=== PATIENT | female | born 1995 ===

== ENCOUNTER 2017-08-01 11:57 | Emergency (ER) | payer OTHER ==
[2017-08-01] MEDS ORDERED: NS(*) 0.9% 1000 ML BAG 1,000 ML IV ONE (12:03)
[2017-08-01] MEDS ORDERED: LORazepam 2 MG/ML VIAL IVP ONE (12:05)
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
[2017-08-01 12:14] LABS: PLATELET COUNT, AUTOMATED 285 K/uL (150-450)
[2017-08-01] MEDS ORDERED: CLON-303 PO (12:16)
[2017-08-01] MEDS ORDERED: BUSP10TA95 PO (12:17)
--- NOTE | 2017-08-01 12:20 | EKG ---
[place] [facility] [place] NAME: LALO NOLASCO : [id number] MR: [id number] V: [id number] EXAM DATE: ORDERING PHYSICIAN: RAMESH WANG TECHNOLOGIST: PATEL Test Reason : SYNCOPE Blood Pressure : / mmHG Vent. Rate : 110 BPM Atrial Rate : 110 BPM P-R Int : 126 ms QRS Dur : 072 ms QT Int : 332 ms P-R-T Axes : 060 079 055 degrees QTc Int : 449 ms Sinus tachycardia Baseline artifact makes difficult to interpret limb leads No obviouis ST-T abnormalities No previous ECGs available Confirmed by JAKY GALLEGOS ([id number]) on 08/01/2017 10:24:20 PM Referred By: MAYDA Confirmed By:JAKY GALLEGOS
--- NOTE | 2017-08-01 13:31 | RADIOLOGY IMAGING REPORT ---
[place] [facility] [place] NAME: Diogo Bartholomew : 1995 MR: [id number] V: [id number] EXAM DATE: ORDERING PHYSICIAN: RAMESH WANG TECHNOLOGIST: Location: [facility] - [place] Patient: Diogo Bartholomew : 1995 Visit/Account:[id number] Date of Sevice: 08/01/2017 Exam type: CHEST PA AND LAT History: Loss of consciousness Comparison: None. Findings: The lungs are free of acute effusions, infiltrates or edema. The cardiac silhouette is normal in siz e. The trachea is midline. There is no evidence of a pneumothorax or pneumomediastinum. IMPRESSION: 1. No acute cardiac pulmonary process is seen Report Dictated By: Gertrude Sun MD at 08/01/2017 1:26 PM Report E-Signed By: Gertrude Sun MD at 08/01/2017 1:27 PM WSN:[id number]
[2017-08-01] MEDS ORDERED: IOPAMIDOL 76% 75 ML INFUS BTL 75 ML ONE (13:58)
[2017-08-01] MEDS ORDERED: PROMETHAZINE 25 MG/ML 1 ML AMP IVP ONE (14:20)
--- NOTE | 2017-08-01 14:38 | RADIOLOGY IMAGING REPORT ---
FACILITY: [facility] - [place] PATIENT NAME: Diogo Bartholomew : 1995 MR: [id number] V: [id number] EXAM DATE: ORDERING PHYSICIAN: RAMESH WANG TECHNOLOGIST: Location: [facility] Patient: Diogo Bartholomew : 1995 Visit/Account:[id number] Date of Sevice: 08/01/2017 EXAMINATION: Head CT without intravenous contrast HISTORY: Seizure, elevated LFTs, vomiting and diarrhea TECHNIQUE: Contiguous axial images were obtained from the skull base to the vertex without intraven ous contrast. Sagittal and coronal reformatted images are also submitted. Dose Lowering Technique One of the following dose optimization techniques was utilized in the performance of this exam: Autom ated exposure control; adjustment of the mA and/or kV according to the patient's size; or use of an i terative reconstruction technique. Specific details can be referenced in the facility's radiology C T exam operational policy. COMPARISON: None. FINDINGS: Brain volume: Normal. Ventricles: Normal. Acute ischemic changes: None. Hemorrhage: None. Masses / edema: None. Cifuentes-white: Negative. White matter: Normal. Vessels: Negative. Extra-axial: Negative. Calvarium / scalp: Negative. Skull base / visualized face: Negative. Visualized sinuses / orbits: Negative. IMPRESSION: Unremarkable head CT without contrast. Given the clinical history MR may be of value Report Dictated By: Gertrude Sun MD at 08/01/2017 2:31 PM Report E-Signed By: Gertrude Sun MD at 08/01/2017 2:34 PM WSN:[email or web address]
--- NOTE | 2017-08-01 14:39 | RADIOLOGY IMAGING REPORT ---
[place] [facility] [place] Diogo Bartholomew : 1995 MR: [id number] V: [id number] EXAM DATE: ORDERING PHYSICIAN: RAMESH WANG TECHNOLOGIST: Location[place] [facility] [place] Patient: Diogo Bartholomew : 1995 Visit/Account:[id number] Date of Sevice: 08/01/2017 ABDOMEN/PELVIS WITH CONTRAST Provided history: Seizure. Elevated LFTs. Vomiting. Diarrhea. Additional pertinent history: none TECHNIQUE: Spiral scan was obtained from the lower chest through the symphysis with intravenous cont rast Contrast dose: 75 mL Isovue 370 intravenously. Source images were reformatted in the coronal and sagittal planes. Additional series performed today: none One of the following dose optimization techniques was utilized in the performance of this exam: Autom ated exposure control; adjustment of the mA and/or kV according to the patient's size; or use of an i terative reconstruction technique. Specific details can be referenced in the facility's radiology CT exam operational policy. COMPARISON STUDIES: none FINDINGS: Lower chest: Negative Liver/biliary: Advanced diffuse hepatic steatosis. Liver density is nearly equal to that of bile in t he gallbladder. No focal lesion. Surface is smooth. No vascular thromboses. Main portal vein measures 17 mm, mildly prominent. Splenic size normal. No varices are visualized at this time. Pancreas: Negative Spleen: Negative Adrenal glands: Negative Kidneys / ureters / bladder / genitourinary / retroperitoneum: Negative Bowel / peritoneum / mesenteries: Negative Vessels: negative Lymph nodes: negative Body wall: negative Bones: Benign condensation medullary bone noted proximal right femoral shaft. IMPRESSION: 1. Advanced diffuse hepatic steatosis without signs of developing cirrhosis at this time. There may b e early evidence of portal venous hypertension with a mildly prominent main portal vein. 2. No acute inflammatory changes in the abdomen or pelvis. Report Dictated By: Nick Sales MD at 08/01/2017 2:27 PM Report E-Signed By: Nick Sales MD at 08/01/2017 2:34 PM WSN:[id number]
[2017-08-01] MEDS: [UNRECOGNIZED DRUG - OTHER] IV SCH (15:00)
[2017-08-01] MEDS: THIAMINE HCL IV SCH (15:00)
[2017-08-01] MEDS: FOLIC ACID IV SCH (15:00)
[2017-08-01 18:24] VITALS: BP 137/94
== END 2017-08-01 18:29 | disposition home or self-care (01) ==
LOC: ER 12:00
DX: F41.9 Anxiety disorder, unspecified (principal); R94.5 Abnormal results of liver function studies; E86.0 Dehydration; F10.10 Alcohol abuse, uncomplicated
CPT/HCPCS: 36415; 70450; 71046; 74177; 80074; 80305; 80320; 80329; 81001; 81025; 82140; 82150; 82550; 82800; 83605; 83690; 83735; 83874; 84443; 84484; 85025; 93005; 96361; 96365; 96366; 96375; 99284; J2060; J2550; J3411; J3475; J7030; Q9967; 82040; 82247; 82310; 82374; 82435; 82565; 82947; 84075; 84132; 84155; 84295; 84450; 84460; 84520

== ENCOUNTER → 2017-08-01 | Outpatient (CLI) | payer OTHER ==
[~2017-08-01] MED LIST: BUSP10TA95 PO; CLON-303 PO
== END ==
LOC: AMB 11:43
PROVIDERS: ATTEND Nurse Practitioner
DX: R55 Syncope and collapse (principal); F41.9 Anxiety disorder, unspecified; R53.1 Weakness; I10 Essential (primary) hypertension; R00.0 Tachycardia, unspecified; R06.82 Tachypnea, not elsewhere classified; R10.10 Upper abdominal pain, unspecified
CPT/HCPCS: A0425; A0427

== ENCOUNTER 2017-10-11 04:35 | Emergency (ER) | payer OTHER ==
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
[2017-10-11] MEDS ORDERED: THIAMINE HCL(*) 200 MG/2 ML IN 100 MG, FOLIC ACID(*) 50 MG/10 ML INJ 1 MG, MULTIVITAMIN... IV ONE (04:50)
[2017-10-11] MEDS ORDERED: ESCI20TA38 PO (05:00)
[2017-10-11] MEDS ORDERED: ONDANSETRON 4 MG/2 ML VIAL IVP ONE (05:20)
[2017-10-11 05:31] LABS: PLATELET COUNT, AUTOMATED 281 K/uL (150-450)
[2017-10-11] MEDS ORDERED: LORazepam 2 MG/ML VIAL IVP ONE (05:55)
[2017-10-11] MEDS ORDERED: NICOTINE CARTRIDGE 1 EA PO PRN (07:05)
[2017-10-11] MEDS ORDERED: NICOTINE INH SYSTEM 10 MG/INH INH PRN (07:05)
[2017-10-11] MEDS ORDERED: LORazepam 1 MG TAB PO ONE (09:20)
[2017-10-11 11:33] VITALS: BP 128/79
[2017-10-11] MEDS ORDERED: cefTRIAXone 250 MG VIAL IM ONE (11:40)
[2017-10-11] MEDS ORDERED: AZITHROMYCIN 250 MG TAB PO ONE (11:40)
[2017-10-11] MEDS ORDERED: IBUPROFEN 600 MG TAB PO ONE (11:40)
[2017-10-11] MEDS ORDERED: LEVONORGESTREL 1.5 MG TAB PO ONE (11:40)
== END 2017-10-11 12:16 | disposition home or self-care (01) ==
LOC: ER 04:58
DX: F10.229 Alcohol dependence with intoxication, unspecified (principal); Y90.8 Blood alcohol level of 240 mg/100 ml or more; F41.9 Anxiety disorder, unspecified; T74.21XA Adult sexual abuse, confirmed, initial encounter
CPT/HCPCS: 80320; 80329; 83735; 84443; 85025; 96365; 96375; 99284; A9270; J0696; J2060; J2405; J3411; J3475; J7030; Q0144; 82040; 82247; 82310; 82374; 82435; 82565; 82947; 84075; 84132; 84155; 84295; 84450; 84460; 84520

== ENCOUNTER 2017-11-14 19:48 | Emergency (ER) | payer OTHER ==
[~2017-11-14 19:48] MED LIST changes: +ESCI20TA38 PO
[2017-11-15] MEDS ORDERED: HYDR25TA66 PO (08:55)
[2017-11-15] MEDS ORDERED: HYDR25CA83 PO (11:04)
== END 2017-11-14 21:39 | disposition left against medical advice (07) ==
LOC: ER 20:20
DX: Z02.9 Encounter for administrative examinations, unspecified (principal)

== ENCOUNTER 2017-11-15 08:48 | Emergency (ER) | payer OTHER ==
[2017-11-15] MEDS ORDERED: HYDR25TA66 PO (08:55)
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
[2017-11-15 09:47] LABS: PLATELET COUNT, AUTOMATED 211 K/uL (150-450)
[2017-11-15 10:45] VITALS: BP 124/96
[2017-11-15] MEDS ORDERED: HYDR25CA83 PO (11:04)
[2017-11-16] MEDS ORDERED: MULT-1379 PO (08:29)
[2017-11-16] MEDS ORDERED: FOLI-68 PO (08:29)
[2017-11-16] MEDS ORDERED: THIA100T62 PO (08:29)
[2017-11-16] MEDS ORDERED: NICO-219 BC (08:30)
== END 2017-11-15 10:46 ==
LOC: ER 08:55
DX: F10.10 Alcohol abuse, uncomplicated (principal); R25.1 Tremor, unspecified
CPT/HCPCS: 36415; 80305; 80320; 80329; 81001; 81025; 82040; 82247; 82310; 82374; 82435; 82565; 82947; 83735; 84075; 84132; 84155; 84295; 84443; 84450; 84460; 84520; 85025; 99282

== ENCOUNTER 2017-11-15 10:38 | Inpatient (IN) | payer OTHER ==
[~2017-11-15] VITALS: Ht 162.6 cm; Wt 59.0 kg
[~2017-11-15 10:38] MED LIST changes: +HYDR25TA66 PO
[2017-11-15] MEDS ORDERED: DIAZEPAM 10 MG TAB PO ONE (10:55)
[2017-11-15] MEDS ORDERED: MAG HYD/AL HYD/SIMETH 30ML UDC PO PRN (10:55)
[2017-11-15] MEDS ORDERED: HYDR25CA83 PO (11:04)
[2017-11-15 11:20] VITALS: BP 128/92
[2017-11-15] MEDS ORDERED: NICOTINE INH SYSTEM 10 MG/INH INH PRN (12:00)
[2017-11-15] MEDS ORDERED: NICOTINE CARTRIDGE 1 EA PO PRN (12:00)
[2017-11-15] MEDS: DIAZEPAM 10 MG TAB PO PRN ×5 (12:04→22:23)
[2017-11-15 12:50] VITALS: BP 106/76
[2017-11-15 17:30] VITALS: BP 104/82
[2017-11-15 18:51] VITALS: BP 122/86
[2017-11-15 20:00] VITALS: BP 128/82
[2017-11-15] MEDS: NICOTINE POLACRILEX 2 MG GUM PO PRN (20:59)
[2017-11-15 21:57] VITALS: BP 123/89
[2017-11-16 06:00] VITALS: BP 112/71
[2017-11-16] MEDS: NICOTINE POLACRILEX 2 MG GUM PO PRN (08:20)
[2017-11-16] MEDS ORDERED: FOLI-68 PO (08:29)
[2017-11-16] MEDS ORDERED: THIA100T62 PO (08:29)
[2017-11-16] MEDS ORDERED: MULT-1379 PO (08:29)
[2017-11-16] MEDS ORDERED: NICO-219 BC (08:30)
[2017-11-16] MEDS ORDERED: FOLIC ACID 1 MG TAB PO SCH (09:00)
[2017-11-16] MEDS ORDERED: ESCITALOPRAM OXALATE 10 MG TAB PO SCH (09:00)
[2017-11-16] MEDS ORDERED: MULTIVITAMINS TAB PO SCH (09:00)
[2017-11-16] MEDS ORDERED: THIAMINE HCL 100 MG TAB PO SCH (09:00)
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
== END 2017-11-16 09:30 | disposition home or self-care (01) | DRG 897 ==
LOC: BHS 10:38
PROVIDERS: ADMIT Psychiatry & Neurology Psychiatry; ATTEND Psychiatry & Neurology Psychiatry
DX: F10.230 Alcohol dependence with withdrawal, uncomplicated (principal); F12.90 Cannabis use, unspecified, uncomplicated; F41.9 Anxiety disorder, unspecified; F60.9 Personality disorder, unspecified; S10.91XA Abrasion of unspecified part of neck, initial encounter; S00.81XA Abrasion of other part of head, initial encounter; X83.8XXA Intentional self-harm by other specified means, initial encounter; Z53.29 Procedure and treatment not carried out because of patient's decision for other reasons
CPT/HCPCS: 87088

== ENCOUNTER 2017-11-29 22:14 | Emergency (ER) | payer OTHER ==
[~2017-11-29 22:14] MED LIST changes: +FOLI-68 PO; +HYDR25CA83 PO; +MULT-1379 PO; +NICO-219 BC; +THIA100T62 PO
[2017-11-29 22:19] VITALS: BP 132/88
--- NOTE | 2017-11-29 22:34 | ER Report ---
History and Physical Time Seen By MD: 22:26 Hx. of Stated Complaint: Wants to detox but states she doesnt want to talk and non-compliant with UA. States she will allow blood draw. Will not change into gown at this time but allowing vitals. HPI/ROS CHIEF COMPLAINT: Requesting alcohol detox HISTORY OF PRESENT ILLNESS: This is a 22-year-old female. She has alcohol use disorder, has been drinking mainly vodka, one to 2 pints a day for the last several days. Last drink was about 2 hours ago. Starting to feel a little shaky. She does have a history of seizures with withdrawal in the past. She has been admitted here in the past, and signed out AMA. I let her know that the treatment here in the hospital would be exactly the same as previously, and that if she was not okay with the treatment before, what would be different this time. She did not not have an answer for that but did say she was willing to be admitted for treatment. Initially not willing to give a urine sample or get into a gown, but did allow the nurse to begin with a blood draw. She is not wanting to talk to me very much, but will answer a few simple questions and give me some nods and shaking of her head to yes or no questions. Allergies: Coded Allergies: No Known Drug Allergies (Unverified , 11/15/17) Home Meds Reported Medications Nicotine Polacrilex (NICORETTE) 2 Mg Gum, 2 MG BC Q1-2H Y for NICOTINE REPLACEMENT, GUM 11/16/17 Hydroxyzine Pamoate (VISTARIL) 25 Mg Capsule, 25-50 MG PO TID Y for ANXIETY, CAPSULE 11/15/17 Discontinued Reported Medications Thiamine Hcl (THIAMINE HCL) 100 Mg Tablet, 100 MG PO DAILY 11/16/17 Multivits,Th W-Fe,Other Min (THERA-M) 1 Each Tablet, 1 EACH PO QDAY 11/16/17 Folic Acid (FOLIC ACID) 1 Mg Tablet, 1 MG PO QDAY, TAB 11/16/17 Escitalopram Oxalate (LEXAPRO) 20 Mg Tablet, 10 MG PO QDAY, TAB 10/11/17 Reviewed Nurses Notes: Yes Hx Smoking: Yes Smoking Status: Current: Every Day Smoker, Heavy Tobacco Smoker Exposure to Second Hand Smoke?: No Hx Substance Use Disorder: Yes (patient was smokes marijuana last used one week ago) Hx Alcohol Use: Yes Constitutional Vital Sign - Last 24 Hours 11/29/17 22:19 Temp 98.8 Pulse 118 Resp 16 B/P (MAP) 132/88 Pulse Ox 92 O2 Delivery Room Air Physical Exam Was not able to do a physical exam prior to the patient deciding to leave [place]. Medical Decision Making Data Points Result Diagram: 11/29/17225311/29/172253 Laboratory Hematology Test 11/29/17 22:54 Red Blood Count 5.51 M/uL (4.17-5.56) Mean Corpuscular Volume 90.2 fL (80.0-96.0) Mean Corpuscular Hemoglobin 30.9 pg (26.0-33.0) Mean Corpuscular Hemoglobin Concent 34.2 g/dL (32.0-36.0) Red Cell Distribution Width 14.3 % (11.5-14.5) Mean Platelet Volume 7.2 fL (7.2-11.1) Neutrophils (%) (Auto) 45.0 % (39.4-72.5) Lymphocytes (%) (Auto) 45.6 % (17.6-49.6) Monocytes (%) (Auto) 6.8 % (4.1-12.4) Eosinophils (%) (Auto) 1.3 % (0.4-6.7) Basophils (%) (Auto) 1.3 % (0.3-1.4) Nucleated RBC Relative Count (auto) 0.0 /100WBC Neutrophils # (Auto) 2.3 K/uL (2.0-7.4) Lymphocytes # (Auto) 2.3 K/uL (1.3-3.6) Monocytes # (Auto) 0.3 K/uL (0.3-1.0) Eosinophils # (Auto) 0.1 K/uL (0.0-0.5) Basophils # (Auto) 0.1 K/uL (0.0-0.1) Nucleated RBC Absolute Count (auto) 0.00 K/uL Sodium Level 141 mmol/L (137-145) Potassium Level 3.9 mmol/L (3.5-5.0) Chloride Level 101 mmol/L (98-107) Carbon Dioxide Level 24 mmol/L (22-31) Blood Urea Nitrogen 13 mg/dl (7-18) Creatinine 0.80 mg/dl (0.52-1.04) Glomerular Filtration Rate Calc > 60.0 Random Glucose 87 mg/dl (75-110) Calcium Level 8.7 mg/dl (8.4-10.2) Magnesium Level 2.0 mg/dl (1.7-2.2) Total Bilirubin 0.3 mg/dl (0.2-1.3) Aspartate Amino Transf (AST/SGOT) 64 U/L (0-35) Alanine Aminotransferase (ALT/SGPT) 94 U/L (0-56) Alkaline Phosphatase 119 U/L (0-126) Total Protein 7.0 g/dl (6.3-8.2) Albumin 4.1 g/dl (3.5-5.0) Salicylates Level < 10 mg/L Salicylate Last Dose Date unk Acetaminophen Level < 10 ug/ml Serum Alcohol 179 mg/dl Chemistry Test 11/29/17 22:54 White Blood Count 5.1 k/uL (4.5-11.0) Red Blood Count 5.51 M/uL (4.17-5.56) Hemoglobin 17.0 g/dL (12.0-16.0) Hematocrit 49.7 % (34.0-47.0) Mean Corpuscular Volume 90.2 fL (80.0-96.0) Mean Corpuscular Hemoglobin 30.9 pg (26.0-33.0) Mean Corpuscular Hemoglobin Concent 34.2 g/dL (32.0-36.0) Red Cell Distribution Width 14.3 % (11.5-14.5) Platelet Count 284 K/uL (150-450) Mean Platelet Volume 7.2 fL (7.2-11.1) Neutrophils (%) (Auto) 45.0 % (39.4-72.5) Lymphocytes (%) (Auto) 45.6 % (17.6-49.6) Monocytes (%) (Auto) 6.8 % (4.1-12.4) Eosinophils (%) (Auto) 1.3 % (0.4-6.7) Basophils (%) (Auto) 1.3 % (0.3-1.4) Nucleated RBC Relative Count (auto) 0.0 /100WBC Neutrophils # (Auto) 2.3 K/uL (2.0-7.4) Lymphocytes # (Auto) 2.3 K/uL (1.3-3.6) Monocytes # (Auto) 0.3 K/uL (0.3-1.0) Eosinophils # (Auto) 0.1 K/uL (0.0-0.5) Basophils # (Auto) 0.1 K/uL (0.0-0.1) Nucleated RBC Absolute Count (auto) 0.00 K/uL Glomerular Filtration Rate Calc > 60.0 Calcium Level 8.7 mg/dl (8.4-10.2) Magnesium Level 2.0 mg/dl (1.7-2.2) Total Bilirubin 0.3 mg/dl (0.2-1.3) Aspartate Amino Transf (AST/SGOT) 64 U/L (0-35) Alanine Aminotransferase (ALT/SGPT) 94 U/L (0-56) Alkaline Phosphatase 119 U/L (0-126) Total Protein 7.0 g/dl (6.3-8.2) Albumin 4.1 g/dl (3.5-5.0) Salicylates Level < 10 mg/L Salicylate Last Dose Date unk Acetaminophen Level < 10 ug/ml Serum Alcohol 179 mg/dl Toxicology Test 11/29/17 22:54 Salicylates Level < 10 mg/L Salicylate Last Dose Date unk Acetaminophen Level < 10 ug/ml Serum Alcohol 179 mg/dl ED Course/Re-evaluation ED Course The patient was not sure if she would stay or not. Kept walking toward the exit and then back to her room. She requested to go outside and have a cigarette, which we said would not be possible. She did have lab work started, but decided to leave and signed out AMA. Decision to Disposition Date: Nov 29, 2017 Decision to Disposition Time: 23:12 Depart Departure Latest Vital Signs Vital Signs Date Time Temp Pulse Resp B/P (MAP) Pulse Ox O2 Delivery O2 Flow Rate FiO2 11/29/17 22:19 98.8 118 16 132/88 92 Room Air Impression: Primary Impression: Alcohol use disorder, severe, dependence Condition: Condition Unchanged Disposition: AGAINST MED ADV / [facility] JULIA OHARA MD Nov 29, 2017 22:33
[2017-11-29] MEDS ORDERED: DIAZEPAM 10 MG TAB PO ONE (22:35)
[2017-11-29 23:02] LABS: PLATELET COUNT, AUTOMATED 284 K/uL (150-450)
== END 2017-11-29 23:14 | disposition left against medical advice (07) ==
LOC: ER 22:32
DX: F10.220 Alcohol dependence with intoxication, uncomplicated (principal); F17.210 Nicotine dependence, cigarettes, uncomplicated; Y90.6 Blood alcohol level of 120-199 mg/100 ml
CPT/HCPCS: 80320; 80329; 82040; 82247; 82310; 82374; 82435; 82565; 82947; 83735; 84075; 84132; 84155; 84295; 84443; 84450; 84460; 84520; 85025; 99283

== ENCOUNTER 2017-12-07 16:49 | Emergency (ER) | payer OTHER ==
[~2017-12-07 16:49] MED LIST changes: -NIC10R INH; -NICOTROL INHALER PO
[2017-12-07] MEDS ORDERED: THIAMINE HCL(*) 200 MG/2 ML IN 100 MG, FOLIC ACID(*) 50 MG/10 ML INJ 1 MG, MULTIVITAMIN... IV ONE (16:52)
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
[2017-12-07 16:56] VITALS: BP 140/95
[2017-12-07 17:09] LABS: PLATELET COUNT, AUTOMATED 256 K/uL (150-450)
[2017-12-07] MEDS ORDERED: NICOTINE 21 MG/24 HR PATCH TD ONE (17:30)
--- NOTE | 2017-12-07 19:19 | BHS - Psychiatric Evaluation ---
ER - Title 25 MHE Evaluation Title 25 Evaluation Patient Detained By: Physician Referral Source: EMS/friend Date Patient Detained: Dec 07, 2017 Time Patient Detained: 19:03 Date Retirement Expires: Dec 11, 2017 Time Retirement Expires: 19:00 Legal Status: Police Hold: No Legal Status: Residence: State Resident Assessment Data Provided By: Patient HPI/ROS: Patient is a 22-year-old female here intoxicated with alcohol with a RAFIQ of 403, and currently given benzodiazepines and taking cannibus at home. Patient has been evaluated here multiple times for similar complaints and has left AMA previously. I evaluated the patient with Addison Dubois NP who thoroughly evaluated the patient during this visit. Due to the concern that the patient would again leave AMA on critically high levels of ETOH in her system and concern that she also has benzodiazepines in her system which may cause respiratory compromise, the patient was detaines, rights were read to the patient. I further discussed the patient with Dr. Arce with behavioral health services who agreed that the patient was not safe to pursue outpatient treatment. I updated the patient regarding the detainment and she voiced understanding. Patient denies SI, HI but was visibly intoxicated and does pose a significant risk for harm if discharged in current state. Admit due to SI or Attempt: No Suicide Plan: No Plan Alcohol or Drugs Involved: Yes Current Intoxication Info: 403 RAFIQ on ETOH Is Patient Info Reliable: Yes Is Collateral Info Reliable: Yes Mental Status Exam General Appearance: Tearful, Other (Agitated and uncooperative) Speech: Slurred Mood: Euthymic Affect: Tearful, Agitated Thought Process: Goal Directed Cognition: Alert & Oriented-Person, Alert & Oriented-Place, Alert & Oriented- Time, Zwmbf-Sqhhoecn-Kvonutysd Insight Judgment: Poor Current Risk & History Current Dangerous Risk Assessm: Agitation this Encounter, Ubable to Care for Self Past Dangerous Risk Assessm: Other (No documented SI/HI- concurrent severe ETOH use/polysubstance use) Prior Alcohol/Drug Abuse Current and ongoing alcohol abuse Previous Suicide Attempt: No Previous Attempt Previous Psychiatric Illness: Yes Previous Psychiatric Treatment: Yes Risk Assessment & Disposition Evaluated Risk Assessment: Patient poses a high risk of harm to self due to current level of intoxication and concurrent other substance use which may cause respiratory depression and self harm or Impression: Primary Impression: Alcohol use disorder, severe, dependence Additional Impressions: Alcohol abuse Anxiety Meets Mental Illness Req.: Yes Meets Dangerousness Req.: Yes Emergency Retirement to be: Upheld Date of Decision: Dec 07, 2017 Time of Decision: 19:16 Patient is Medically Stable at: Yes Disposition: [facility] Problem Qualifiers WANDA JUNIOR DO Dec 07, 2017 19:19
[2017-12-08] MEDS ORDERED: ESCI20TA38 PO (07:52)
== END 2017-12-07 19:30 ==
LOC: ER 16:56
DX: F10.120 Alcohol abuse with intoxication, uncomplicated (principal); Y90.8 Blood alcohol level of 240 mg/100 ml or more; F12.10 Cannabis abuse, uncomplicated; F17.210 Nicotine dependence, cigarettes, uncomplicated; R00.0 Tachycardia, unspecified
CPT/HCPCS: 80305; 80320; 80329; 81001; 83735; 84443; 84703; 85025; 93005; 96365; 96366; 99284; J3411; J3475; J7030; 82040; 82247; 82310; 82374; 82435; 82565; 82947; 84075; 84132; 84155; 84295; 84450; 84460; 84520

== ENCOUNTER 2017-12-07 19:15 | Inpatient (IN) | payer OTHER ==
[~2017-12-07] VITALS: Ht 190.5 cm; Wt 57.2 kg
[2017-12-07 19:40] VITALS: BP 135/93
[2017-12-07] MEDS ORDERED: MAG HYD/AL HYD/SIMETH 30ML UDC PO PRN (19:45)
[2017-12-07] MEDS: NICOTINE POLACRILEX 2 MG GUM PO PRN (20:22)
--- NOTE | 2017-12-07 20:45 | EKG ---
FACILITY: [facility] - [place], [place] PATIENT NAME: LALO NOLASCO : [id number] MR: [id number]: [id number] EXAM DATE: ORDERING PHYSICIAN: JANICE JAMISON TECHNOLOGIST: FAY Test Reason : ETOH Blood Pressure : / mmHG Vent. Rate : 102 BPM Atrial Rate : 102 BPM P-R Int : 136 ms QRS Dur : 078 ms QT Int : 364 ms P-R-T Axes : 077 075 054 degrees QTc Int : 474 ms Sinus tachycardia Otherwise normal ECG When compared with ECG of 01-AUG-2017 12:09, No significant change was found Confirmed by ROBBY BERNARDO ([id number]) on 12/08/2017 6:48:24 AM Referred By: Confirmed By:ROBBY BERNARDO
--- NOTE | 2017-12-07 21:51 | BHS - Psychiatric Evaluation ---
ER - Title 25 MHE Evaluation Title 25 Evaluation Patient Detained By: Physician (Dr. Winn) Referral Source: Professional: Dr Winn Date Patient Detained: Dec 07, 2017 Time Patient Detained: 18:48 Date Correction Expires: Dec 12, 2017 Time Correction Expires: 18:48 Legal Status: Police Hold: No Legal Status: Residence: [facility] Assessment Data Provided By: Patient, Other Source (S and [facility] Profession[facility]) HPI/ROS: Patient is a 22-year-old female here intoxicated with alcohol with a RAFIQ of 403, and currently given benzodiazepines and taking cannabis at home. Patient has been evaluated here multiple times for similar complaints and has left AMA previously. I evaluated the patient with Addison Dubois NP who thoroughly evaluated the patient during this visit. Due to the concern that the patient would again leave AMA on critically high levels of ETOH in her system and concern that she also has benzodiazepines in her system which may cause respiratory compromise, the patient was detained, rights were read to the patient. I further discussed the patient with Dr. Arce with behavioral health services who agreed that the patient was not safe to pursue outpatient treatment. I updated the patient regarding the detainment and she voiced understanding. Patient denies SI, HI but was visibly intoxicated and does pose a significant risk for harm if discharged in current state. Admit due to SI or Attempt: No Suicide Plan: No Plan (Denies) Alcohol or Drugs Involved: Yes Current Intoxication Info: 403 RAFIQ on ETOH Is Patient Info Reliable: No Is Collateral Info Reliable: Yes Current Home Psych Meds: None noted. Patient given medications to help her safely detox. Mental Status Exam General Appearance: Cooperative Speech: Normal Rate Mood: Dysthmic/Depressed Affect: Sad Thought Content: Suicidal Ideation (Denies) Cognition: Alert & Oriented-Person, Alert & Oriented-Place, No Alert & Oriented -Time, Ufymb-Hixnbswq-Msfuuezny Memory: Immediate Insight Judgment: Poor Sleep: Insomnia Hallucinations: Denies Delusions: Denies Current Risk & History Current Dangerous Risk Assessm: Current Suicide Ideation (Denies) Past Dangerous Risk Assessm: Suicide Ideation-last 6mo Prior Alcohol/Drug Abuse Extremely dangerous alcohol use. She could easily have respiratory failure resulting in if her withdrawal is not medically managed. Previous Suicide Attempt: No Previous Attempt Previous Psychiatric Illness: Yes Previous Diagnosis/Treatment: Alcohol Use Disorder, Severe Previous Psychiatric Treatment: Yes (Patient has been treated previously and left AMA) Risk Assessment & Disposition Evaluated Risk Assessment: Risk is evaluated as high, patient has a critically high RAFIQ, which could result in dangerous alcohol poisoning. Patient said, "I need to be here. I know I need the help." Historically, patient will not stay at the hospital and leaves AMA. The danger in patient withdrawing with out medical supervision is severe. She could easily lose her life. Impression: Primary Impression: Alcohol abuse Additional Impressions: Alcohol blood level excessive Alcohol use disorder, severe, dependence Meets Mental Illness Req.: Yes Meets Dangerousness Req.: Yes Emergency Correction to be: Upheld Decision Comment: Due to the concern that the patient would again leave AMA on critically high levels of ETOH in her system and concern that she also has benzodiazepines in her system which may cause respiratory compromise, the patient was detained. This detainment is necessary to keep patient safe as she could easily lose her life. Patient is in critical physical distress. She is medically unstable. Date of Decision: Dec 07, 2017 Time of Decision: 21:50 Patient is Medically Stable at: Yes Disposition: [facility] Problem Qualifiers ASHTYN LU LPC Dec 07, 2017 21:51
[2017-12-08 03:20] VITALS: BP 143/84
[2017-12-08] MEDS: DIAZEPAM 10 MG TAB PO PRN ×17 (03:40→23:30)
[2017-12-08 06:00] VITALS: BP 132/86
[2017-12-08] MEDS: FOLIC ACID 1 MG TAB PO SCH (07:47)
[2017-12-08] MEDS: MULTIVITAMINS PO SCH (07:47)
[2017-12-08] MEDS: THIAMINE HCL 100 MG TAB PO SCH (07:47)
[2017-12-08] MEDS ORDERED: ESCI20TA38 PO (07:52)
[2017-12-08 11:00] VITALS: BP 116/92
[2017-12-08] MEDS: NICOTINE POLACRILEX 2 MG GUM PO PRN ×3 (13:16→21:00)
[2017-12-08 14:20] VITALS: BP 128/100
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
[2017-12-08 17:50] VITALS: BP 118/100
[2017-12-08] MEDS: ESCITALOPRAM OXALATE 10 MG TAB PO SCH (21:31)
[2017-12-09 05:50] VITALS: BP 127/81
[2017-12-09] MEDS: THIAMINE HCL 100 MG TAB PO SCH (08:03)
[2017-12-09] MEDS: MULTIVITAMINS PO SCH (08:03)
[2017-12-09] MEDS: FOLIC ACID 1 MG TAB PO SCH (08:03)
[2017-12-09 10:10] VITALS: BP 106/57
[2017-12-09] MEDS: DIAZEPAM 10 MG TAB PO PRN ×8 (10:11→22:31)
--- NOTE | 2017-12-09 10:28 | BHS Progress Note ---
BHS - Subjective Progress Notes Subjective "I'm feeling better. I'm a little anxious." Will follow up w/[facility] upon discharge Withdrawal continues, [facility] protocol in place Discuss outpatient follow up for substance abuse Suicidal Ideation: None Homicidal Ideation: None BHS - Objective Physical Exam Vital Signs Current Medications Medications (Trade) Dose Ordered Sig/Dyana Route PRN Reason Start Time Stop Time Status Last Admin Dose Admin Al Hydrox/Mg Hydrox/Simethicone (Maalox(*) 30 ml Udcup (Or Equiv)) 30 ml Q4H PRN PO DYSPEPSIA 12/07/17 19:45 01/06/18 19:44 Multivitamins (Thera-M Enhanced Tab (Or Equiv)) 1 each QDAY PO 12/08/17 09:00 01/07/18 08:59 12/09/17 08:03 Thiamine HCl (Vitamin B-1(*) 100 Mg Tab (Or Equiv)) 100 mg QDAY PO 12/08/17 09:00 01/07/18 08:59 12/09/17 08:03 Folic Acid (Folic Acid (*) 1 Mg Tab) 1 mg QDAY PO 12/08/17 09:00 01/07/18 08:59 12/09/17 08:03 Diazepam (Valium(*) 10 Mg Tab (Or Equiv)) 20 mg Q1H PRN PO FOLLOW [facility] PROTOCOL 12/07/17 19:45 12/09/17 08:13 DC 12/08/17 23:30 Nicotine Polacrilex (Nicorette 2 Mg Gum (Or Equiv)) 2 mg Q1-2H PRN PO NICOTINE REPLACEMENT 12/07/17 19:40 01/06/18 19:39 12/08/17 21:00 Escitalopram Oxalate (Lexapro 10 Mg Tab (Or Equiv)) 10 mg QHS PO 12/08/17 21:00 01/07/18 20:59 12/08/17 21:31 Diazepam (Valium(*) 10 Mg Tab (Or Equiv)) See Comments for C... PRN PRN PO FOLLOW [facility] PROTOCOL 12/09/17 08:15 12/23/17 08:14 12/09/17 10:11 Vital Signs Date Time Temp Pulse Resp B/P (MAP) Pulse Ox O2 Delivery O2 Flow Rate FiO2 6/30/18 05:50 100.0 104 127/81 (96) 12/08/17 17:50 18 97 Room Air Allergies Coded Allergies No Known Drug Allergies (Unverified12/07/17) Muscle Strength and Tone: WNL Gait and Station: Steady [facility] Medications Reviewed: Benefits of Medication, Risks Allergies Reviewed: Yes Mental Status Exam General Appearance: Casual, Well Groomed, Good Eye Contact, Cooperative, Polite Speech: Clear, Spontaneous, Normal Rate, Normal Rhythm, Normal Volume, Normal Tone Mood: Dysthmic/Depressed Affect: Calm, Sad, Tearful, Anxious Thought Process: Organized, Logical, Goal Directed, No Loose Associations, No Flight of Ideas Sensorium: Clear Cognition: Alert & Oriented-Person, Alert & Oriented-Place, No Alert & Oriented -Time, Nicos-Eclkqcet-Wbvorfwtu Memory: Immediate, Recent, Remote Intelligence: Average Insight Judgment: No Poor (states intent on outpatient IOP), Fair Lab Allergies Coded Allergies No Known Drug Allergies (Unverified12/07/17) Microbiology Vital Signs Date Time Temp Pulse Resp B/P (MAP) Pulse Ox O2 Delivery O2 Flow Rate FiO2 12/09/17 05:50 100.0 104 127/81 (96) 12/08/17 17:50 18 97 Room Air [facility] Assessment and Plan Hgiy-tc-Rfrv Encounter Date: Dec 09, 2017 Madg-ux-Enpc Encounter Time: 10:23 Multpiple Antipsychotics Used: No Problems: (1) Alcohol use disorder, severe, dependence Status: Chronic (2) Anxiety Status: Acute (3) Alcohol withdrawal Status: Acute Condition Continue [facility] protocol Continue current medications and treatment CALVIN CARRANZA NP Dec 09, 2017 10:28
[2017-12-09] MEDS: NICOTINE POLACRILEX 2 MG GUM PO PRN ×2 (11:57→14:03)
[2017-12-09 12:15] VITALS: BP 114/98
[2017-12-09 14:10] VITALS: BP 111/96
[2017-12-09] MEDS ORDERED: NICOTINE CARTRIDGE 1 EA PO PRN (14:45)
[2017-12-09] MEDS: NICOTINE INH SYSTEM 10 MG/INH INH PRN ×2 (14:59→19:48)
[2017-12-09 20:14] VITALS: BP 132/94
[2017-12-09] MEDS: ESCITALOPRAM OXALATE 10 MG TAB PO SCH (20:21)
[2017-12-10 07:50] VITALS: BP 108/62
[2017-12-10] MEDS: THIAMINE HCL 100 MG TAB PO SCH (07:50)
[2017-12-10] MEDS: FOLIC ACID 1 MG TAB PO SCH (07:50)
[2017-12-10] MEDS: MULTIVITAMINS PO SCH (07:50)
[2017-12-10 07:52] LABS: PLATELET COUNT, AUTOMATED 133 K/uL (150-450)
--- NOTE | 2017-12-10 09:17 | BHS Progress Note ---
S - Subjective Progress Notes Subjective "I'm going to start IOP on December 18. I've done the ASI. I need to get back to work and stay busy." Reports anxiety, denies depression. Verbalizes intent on staying sober. AST 84, ALT 99 Suicidal Ideation: None Homicidal Ideation: None S - Objective Physical Exam Vital Signs Vital Signs Date Time Temp Pulse Resp B/P (MAP) Pulse Ox O2 Delivery O2 Flow Rate FiO2 12/10/17 07:50 98.3 79 108/62 (77) 96 Room Air 12/09/17 14:10 18 Deferred Allergies Coded Allergies No Known Drug Allergies (Unverified12/07/17) Muscle Strength and Tone: WNL Gait and Station: Steady [facility] Medications Reviewed: Benefits of Medication, Risks Allergies Reviewed: Yes Mental Status Exam General Appearance: Casual, Well Groomed, Good Eye Contact, Cooperative, Polite Speech: Clear, Spontaneous, Normal Rate, Normal Rhythm, Normal Volume, Normal Tone Mood: No Dysthmic/Depressed, Euthymic Affect: Full and Appropriate, Calm, No Sad, No Tearful, No Anxious Thought Process: Organized, Logical, Goal Directed, No Loose Associations, No Flight of Ideas Thought Content: No Suicidal Ideation, No Homicidal Ideation, No Delusions, No Auditory Halllucinations, No Visual Hallucinations, No Thought Broadcasting Sensorium: Clear Cognition: Alert & Oriented-Person, Alert & Oriented-Place, No Alert & Oriented -Time, Wwaof-Jzttudhh-Hfpjkthrn Memory: Immediate, Recent, Remote Intelligence: Average Insight Judgment: No Poor (states intent on outpatient IOP), Fair Result Diagram: 12/10/17 0735 12/10/17 0735 Lab Laboratory Tests Test 12/07/17 16:45 12/07/17 17:56 12/10/17 07:35 Range/Units White Blood Count 7.4 5.9 4.5-11.0 k/uL Red Blood Count 5.97 4.59 4.17-5.56 M/uL Hemoglobin 18.6 14.2 12.0-16.0 g/dL Hematocrit 53.4 42.0 34.0-47.0 % Mean Corpuscular Volume 89.4 91.5 80.0-96.0 fL Mean Corpuscular Hemoglobin 31.2 30.9 26.0-33.0 pg Mean Corpuscular Hemoglobin Concent 34.9 33.8 32.0-36.0 g/dL Red Cell Distribution Width 14.2 13.7 11.5-14.5 % Platelet Count 256 133 150-450 K/uL Mean Platelet Volume 7.6 8.1 7.2-11.1 fL Neutrophils (%) (Auto) 62.6 44.5 39.4-72.5 % Lymphocytes (%) (Auto) 29.6 35.8 17.6-49.6 % Monocytes (%) (Auto) 6.3 11.5 4.1-12.4 % Eosinophils (%) (Auto) 0.2 7.1 0.4-6.7 % Basophils (%) (Auto) 1.3 1.1 0.3-1.4 % Nucleated RBC Relative Count (auto) 0.1 0.1 /100WBC Neutrophils # (Auto) 4.6 2.6 2.0-7.4 K/uL Lymphocytes # (Auto) 2.2 2.1 1.3-3.6 K/uL Monocytes # (Auto) 0.5 0.7 0.3-1.0 K/uL Eosinophils # (Auto) 0.0 0.4 0.0-0.5 K/uL Basophils # (Auto) 0.1 0.1 0.0-0.1 K/uL Nucleated RBC Absolute Count (auto) 0.01 0.01 K/uL Sodium Level 140 136 137-145 mmol/L Potassium Level 4.4 3.9 3.5-5.0 mmol/L Chloride Level 99 104 98-107 mmol/L Carbon Dioxide Level 15 25 22-31 mmol/L Blood Urea Nitrogen 12 15 7-18 mg/dl Creatinine 0.80 0.60 0.52-1.04 mg/dl Glomerular Filtration Rate Calc > 60.0 > 60.0 Random Glucose 82 80 75-110 mg/dl Calcium Level 8.8 8.6 8.4-10.2 mg/dl Magnesium Level 2.1 1.7-2.2 mg/dl Total Bilirubin 1.1 0.3 0.2-1.3 mg/dl Aspartate Amino Transf (AST/SGOT) 88 84 0-35 U/L Alanine Aminotransferase (ALT/SGPT) 84 99 0-56 U/L Alkaline Phosphatase 90 96 0-126 U/L Total Protein 7.5 5.0 6.3-8.2 g/dl Albumin 4.6 2.7 3.5-5.0 g/dl Thyroid Stimulating Hormone (TSH) 0.27 0.46-4.68 uIU/ml Human Chorionic Gonadotropin, Qual Negative NEGATIVE Salicylates Level < 10 mg/L Salicylate Last Dose Date unk Acetaminophen Level < 10 ug/ml Serum Alcohol 403 mg/dl Urine Color Yellow Urine Clarity Slightly-cloudy Urine pH 5.0 4.8-9.5 pH Urine Specific [place] 1.024 Urine Protein 100 NEGATIVE mg/dL Urine Glucose (UA) 150 NEGATIVE mg/dL Urine Ketones 80 NEGATIVE mg/dL Urine Blood Small NEGATIVE Urine Nitrite Negative NEGATIVE Urine Bilirubin Negative NEGATIVE Urine Urobilinogen Negative 0.2-1.9 mg/dL Urine Leukocyte Esterase Negative NEGATIVE Urine RBC 1 0-2/HPF /HPF Urine WBC 4 0-5/HPF /HPF Urine Squamous Epithelial Cells Many </=FEW /LPF Urine Bacteria Few NONE-FEW /HPF Urine Hyaline Casts Few NONE-FEW /LPF Urine Mucus Few NONE-FEW /HPF Urine Opiates Screen Negative Urine Barbiturates Screen Negative Ur Tricyclic Antidepressants Screen Negative Urine Phencyclidine Screen Negative Urine Amphetamines Screen Negative Urine Benzodiazepines Screen Negative Urine Cocaine Screen Negative Urine Cannabinoids Screen Positive Microbiology Laboratory Tests 12/10/17 07:35 Laboratory - CBC/BMP Diagrams 12/10/17 07:35 BHS Assessment and Plan Snei-kg-Bxcf Encounter Date: Dec 10, 2017 Cmef-ag-Ttne Encounter Time: 09:12 Multpiple Antipsychotics Used: No Problems: (1) Alcohol use disorder, severe, dependence Status: Chronic (2) Anxiety Status: Acute (3) Alcohol withdrawal Status: Acute Condition Continue CIWA Discuss in length discharge substance abuse therapy follow up once To complete WRAP today CALVIN CARRANZA NP Dec 10, 2017 09:17
[2017-12-10] MEDS: NICOTINE INH SYSTEM 10 MG/INH INH PRN ×3 (09:27→20:27)
[2017-12-10 11:54] VITALS: BP 98/70
[2017-12-10 16:10] VITALS: BP 100/64
[2017-12-10 20:24] VITALS: BP 121/85
[2017-12-10] MEDS: ESCITALOPRAM OXALATE 10 MG TAB PO SCH (20:56)
[2017-12-11 05:30] VITALS: BP 102/62
[2017-12-11] MEDS: THIAMINE HCL 100 MG TAB PO SCH (08:10)
[2017-12-11] MEDS: FOLIC ACID 1 MG TAB PO SCH (08:10)
[2017-12-11] MEDS: MULTIVITAMINS PO SCH (08:11)
[2017-12-11] MEDS: NICOTINE INH SYSTEM 10 MG/INH INH PRN ×3 (08:12→20:35)
[2017-12-11 09:30] VITALS: BP 117/74
--- NOTE | 2017-12-11 14:10 | BHS Progress Note ---
BHS - Subjective Progress Notes Subjective "Is that some kind of a joke"? Patient commenting on this providers approach, and indicating as on previous admission and ER visits, a dissatisfaction with her care. Patient noted to be flirtatious on unit with other male patients. Patient than becoming angry with this provider when this provider exited room, so that patient could hopefully work with therapist and rest of treatment team. Patient notably tearful when she could no longer berate this provider. Underlying maladaptive personality traits outside of alcohol use disorder likely prominent, especially concerning relationships with males. Patient's alcohol withdrawal considered complete, and patient will discharge tomorrow. Suicidal Ideation: None Homicidal Ideation: None BHS - Objective Physical Exam Vital Signs Hematology Test 12/10/17 07:35 Red Blood Count 4.59 M/uL (4.17-5.56) Mean Corpuscular Volume 91.5 fL (80.0-96.0) Mean Corpuscular Hemoglobin 30.9 pg (26.0-33.0) Mean Corpuscular Hemoglobin Concent 33.8 g/dL (32.0-36.0) Red Cell Distribution Width 13.7 % (11.5-14.5) Mean Platelet Volume 8.1 fL (7.2-11.1) Neutrophils (%) (Auto) 44.5 % (39.4-72.5) Lymphocytes (%) (Auto) 35.8 % (17.6-49.6) Monocytes (%) (Auto) 11.5 % (4.1-12.4) Eosinophils (%) (Auto) 7.1 % (0.4-6.7) Basophils (%) (Auto) 1.1 % (0.3-1.4) Nucleated RBC Relative Count (auto) 0.1 /100WBC Neutrophils # (Auto) 2.6 K/uL (2.0-7.4) Lymphocytes # (Auto) 2.1 K/uL (1.3-3.6) Monocytes # (Auto) 0.7 K/uL (0.3-1.0) Eosinophils # (Auto) 0.4 K/uL (0.0-0.5) Basophils # (Auto) 0.1 K/uL (0.0-0.1) Nucleated RBC Absolute Count (auto) 0.01 K/uL Sodium Level 136 mmol/L (137-145) Potassium Level 3.9 mmol/L (3.5-5.0) Chloride Level 104 mmol/L (98-107) Carbon Dioxide Level 25 mmol/L (22-31) Blood Urea Nitrogen 15 mg/dl (7-18) Creatinine 0.60 mg/dl (0.52-1.04) Glomerular Filtration Rate Calc > 60.0 Random Glucose 80 mg/dl (75-110) Calcium Level 8.6 mg/dl (8.4-10.2) Total Bilirubin 0.3 mg/dl (0.2-1.3) Aspartate Amino Transf (AST/SGOT) 84 U/L (0-35) Alanine Aminotransferase (ALT/SGPT) 99 U/L (0-56) Alkaline Phosphatase 96 U/L (0-126) Total Protein 5.0 g/dl (6.3-8.2) Albumin 2.7 g/dl (3.5-5.0) Chemistry Test 12/10/17 07:35 White Blood Count 5.9 k/uL (4.5-11.0) Red Blood Count 4.59 M/uL (4.17-5.56) Hemoglobin 14.2 g/dL (12.0-16.0) Hematocrit 42.0 % (34.0-47.0) Mean Corpuscular Volume 91.5 fL (80.0-96.0) Mean Corpuscular Hemoglobin 30.9 pg (26.0-33.0) Mean Corpuscular Hemoglobin Concent 33.8 g/dL (32.0-36.0) Red Cell Distribution Width 13.7 % (11.5-14.5) Platelet Count 133 K/uL (150-450) Mean Platelet Volume 8.1 fL (7.2-11.1) Neutrophils (%) (Auto) 44.5 % (39.4-72.5) Lymphocytes (%) (Auto) 35.8 % (17.6-49.6) Monocytes (%) (Auto) 11.5 % (4.1-12.4) Eosinophils (%) (Auto) 7.1 % (0.4-6.7) Basophils (%) (Auto) 1.1 % (0.3-1.4) Nucleated RBC Relative Count (auto) 0.1 /100WBC Neutrophils # (Auto) 2.6 K/uL (2.0-7.4) Lymphocytes # (Auto) 2.1 K/uL (1.3-3.6) Monocytes # (Auto) 0.7 K/uL (0.3-1.0) Eosinophils # (Auto) 0.4 K/uL (0.0-0.5) Basophils # (Auto) 0.1 K/uL (0.0-0.1) Nucleated RBC Absolute Count (auto) 0.01 K/uL Glomerular Filtration Rate Calc > 60.0 Calcium Level 8.6 mg/dl (8.4-10.2) Total Bilirubin 0.3 mg/dl (0.2-1.3) Aspartate Amino Transf (AST/SGOT) 84 U/L (0-35) Alanine Aminotransferase (ALT/SGPT) 99 U/L (0-56) Alkaline Phosphatase 96 U/L (0-126) Total Protein 5.0 g/dl (6.3-8.2) Albumin 2.7 g/dl (3.5-5.0) Vital Signs Date Time Temp Pulse Resp B/P (MAP) Pulse Ox O2 Delivery O2 Flow Rate FiO2 12/11/17 09:30 98.1 96 117/74 (88) 96 Room Air 12/11/17 05:30 15 Muscle Strength and Tone: WNL Gait and Station: Steady BHS Medications Reviewed: Benefits of Medication, Risks Allergies Reviewed: Yes Mental Status Exam General Appearance: Casual, Well Groomed, Good Eye Contact, Cooperative, Polite , Tearful (frustrated), Psychomotor Agitation (at times) Speech: Clear, Spontaneous, Normal Rate, Normal Rhythm, Normal Volume, Normal Tone, No Slurred, No Rambling, No Inappropriate Mood: Dysthmic/Depressed (variable.) Affect: Full and Appropriate, Calm, No Sad, Tearful, Anxious Thought Process: Organized, Logical, Goal Directed, No Loose Associations, No Flight of Ideas Thought Content: No Suicidal Ideation, No Homicidal Ideation, No Delusions, No Auditory Halllucinations, No Visual Hallucinations, No Thought Broadcasting, No Ideas of Reference, No Obsessions, No Compulsions Sensorium: Clear Cognition: Alert & Oriented-Person, Alert & Oriented-Place, Alert & Oriented- Time, Dyuxd-Vikzvpzo-Clnfrlwxz Memory: Immediate, Recent, Remote Intelligence: Average Insight Judgment: Fair (improving, but underlying maladaptive personailty traits present. ) Result Diagram: 12/10/17 0735 12/10/17 0735 [facility] Assessment and Plan Yryz-dk-Xflu Encounter Date: Dec 11, 2017 Xetg-tg-Alef Encounter Time: 11:30 [facility] Plan: Necessary Precautions, Individual/Group Therapy, Admin/Titrate Meds, Educate Patient Tobacco Medications: Started Multpiple Antipsychotics Used: No Problems: (1) Alcohol use disorder, severe, in controlled environment Status: Chronic (2) Cannabis use disorder, severe, in controlled environment Status: Chronic (3) Personality disorder, unspecified Status: Chronic Condition 1. Emergency detainment to tomorrow. 2. discharge at that time. 3. continue unit education on substance use, and underlying personality traits. JANICE JAMISON MD Dec 11, 2017 14:10
[2017-12-11] MEDS: ESCITALOPRAM OXALATE 10 MG TAB PO SCH (20:33)
[2017-12-11 22:51] VITALS: BP 104/67
[2017-12-12] MEDS: NICOTINE INH SYSTEM 10 MG/INH INH PRN ×3 (00:30→12:56)
[2017-12-12 05:40] VITALS: BP 117/76
[2017-12-12] MEDS: THIAMINE HCL 100 MG TAB PO SCH (08:23)
[2017-12-12] MEDS: MULTIVITAMINS PO SCH (08:23)
[2017-12-12] MEDS: FOLIC ACID 1 MG TAB PO SCH (08:23)
[2017-12-12] MEDS ORDERED: MULT-1379 PO (09:22)
[2017-12-12] MEDS ORDERED: NIC10R INH (09:23)
[2017-12-12] MEDS ORDERED: NICOTROL INHALER PO (09:24)
--- NOTE | 2017-12-13 21:07 | DISCHARGE SUMMARY ---
DATE OF ADMISSION: December 07, 2017 DATE OF DISCHARGE: December 12, 2017 Patient was seen and assessment made on the a.m. of 12 December 2017 at approximately 1000 hours. Patient refusing to be seen by this provider, but overall observations and notes from this provider and other staff members indicated patient doing well. FINAL DIAGNOSES PER DIAGNOSTIC AND STATISTICAL MANUAL OF MENTAL DISORDERS, FIFTH EDITION 1. Alcohol use disorder, severe. 2. Cannabis use disorder, moderate. 3. Rule out personality disorder, unspecified, likely significant underlying cluster B traits. 4. Maladaptive personality traits remain underlying and present in the absence of alcohol use. 5. Patient having supportive relationship with mother. REASON FOR ADMISSION This is a 22-year-old female who is becoming very well known to the [facility] with visits to the Emergency Room displaying very chaotic and manipulative behavior. Patient presented to the Emergency Room on December 07, 2017 , with critically high alcohol levels. Patient was continuing to exhibit help seeking and help rejecting behaviors as on previous visits to this hospital. Patient was emergency detained based on critically high blood alcohol levels as well as nonacceptance of recommended care on previous visits to the hospital. Please see emergency room notes. Patient was then admitted without incident. Patient's alcohol withdrawal was treated to completion with diazepam via [facility] protocol. Alcohol withdrawal was considered very significant in nature. Patient remained on an emergency detainment, and in the absence of alcohol withdrawal as it was nearing completion, patient continued to demonstrate manipulative behaviors on the unit, being flirtatious with male patients on the unit, and being antagonistic toward providers such as this narrator and other medical providers. Patient continued to put much energy into pointing out perceived flaws in her care as on previous visits to the hospital. Patient not demonstrating any parasuicidal or aggressive behaviors, and again, alcohol withdrawal was treated to completion, and patient discharged to home. PHYSICAL EXAMINATION Please see emergency room note. Notable for: GENERAL: A 22-year-old female once again exhibiting very chaotic behaviors with a critically high blood alcohol level. The patient notably tolerant of high blood alcohol levels. VITAL SIGNS: Temperature at time of admission 97.8, pulse 115, respiratory rate 18, blood pressure 140/95, pulse oximetry 90 on room air. Vital signs at time of discharge showed temperature 98.8, pulse 93, respiratory rate 15, blood pressure 117/76, and pulse oximetry 97 on room air. LABORATORY DATA On December 10, 2017, CBC was notable only for platelet count remaining low at 133. Chemistry panel notable for AST elevated at 84, ALT elevated at 99. At time of admission, toxicology screen positive for cannabinoids and serum alcohol level elevated critically high at 403. Urinalysis showed urine glucose present at 150 with urine ketones present at 80 as well. screen was negative. TSH 0.27, likely interference from alcohol intoxication. MENTAL STATUS EXAMINATION GENERAL APPEARANCE, BEHAVIOR, AND ATTITUDE: At time of discharge, this is a mildly cooperative, antagonistic, 22-year-old female, overall well groomed. No psychomotor agitation or retardation. No bizarre mannerisms or tics. Patient making good eye contact, not tearful. SPEECH: With other staff members, and upon observation was within normal limits. Regular rate, rhythm, volume, and tone. MOOD: Remaining frustrated. AFFECT: Mildly constricted at times. THOUGHT PROCESSES: Goal directed, patient adamantly wanting to leave the hospital as emergency detainment was expiring. No loose associations or flight of ideas. THOUGHT CONTENT: Free of auditory or visual hallucinations, ideas of reference , thought broadcasting, delusions, obsessions, compulsions. Patient adamantly denying suicidal or homicidal ideations. SENSORIUM: Clear. COGNITION: Alert and oriented to person, place, time, and situation. MEMORY: Immediate, recent, and remote estimated intact. INTELLIGENCE: Previously estimated as average and based on this admission is average based on interview. INSIGHT AND JUDGMENT: Maladaptive personality traits remain even in the absence of alcohol use disorder, and patient may not be fully understanding the severity of alcohol use disorder combined with cannabis use. Patient not allowing this provider to interview her directly, and information for mental status exam obtained through visualization and monitoring of conversations through staff members and this patient. RESULTS OF TESTING IMAGING: None. LABORATORY DATA: See above. PSYCHOLOGICAL TESTING: Not done. CONSULTATIONS None. TREATMENT Patient received medications, participated to some degree in individual and group therapy. HOSPITAL COURSE Patient's alcohol withdrawal was treated to completion with diazepam per [facility] protocol, was found to be a significant withdrawal in nature. Patient remained manipulative, engaging in manipulative behavior with other staff, noted to be giving other patients false information while on the floor as well. Patient very antagonistic of this provider and other providers she has seen at [facility], and patient putting much energy into pointing out perceptions of flaws in the care she received here at [facility]. Patient likely exhibiting multiple cluster B personality traits that have been longstanding in nature. CONDITION OF PATIENT ON DISCHARGE Stable, considered minimal risk to herself or others and appropriate for discharge in the absence of alcohol, cannabis, or other substance use. DISPOSITION Patient discharged to home. She agreed to abstain from alcohol and cannabis and all illicit substances. Patient would follow up at [facility] with intensive outpatient therapy. Patient recommended to attend DBT groups as well for likely underlying cluster B personality traits. Patient was given the crisis line should symptoms return. She agreed to avoid Tylenol and acetaminophen-containing products. Patient encouraged to stop smoking and remain on [id number] nicotine replacement if necessary. DISCHARGE MEDICATIONS 1. Lexapro 10 mg at bedtime. Patient has script at home. 2. Multivitamin with minerals daily. 3. Patient could use hydroxyzine 25 to 50 mg p.r.n. for anxiety and insomnia as well, and patient had at home. Risks, benefits, and alternatives of above discharge plan were discussed. Informed consent was given to proceed with above discharge plan by this patient and patient's mother aware of discharge plan at time of discharge. It is notable that this patient's prognosis remains rather poor in the face of significant alcohol and cannabis use disorder combined with maladaptive personality traits. Hopefully, patient will continue to seek therapy, in order to mature and abstain from substances on an outpatient basis. YASIR
== END 2017-12-12 14:33 | disposition home or self-care (01) | DRG 897 ==
LOC: BHS 19:15
PROVIDERS: ADMIT Psychiatry & Neurology Psychiatry; ATTEND Psychiatry & Neurology Psychiatry
DX: F10.230 Alcohol dependence with withdrawal, uncomplicated (principal); F12.10 Cannabis abuse, uncomplicated; F60.9 Personality disorder, unspecified; F41.9 Anxiety disorder, unspecified; Y90.8 Blood alcohol level of 240 mg/100 ml or more; Z91.19 Patient's noncompliance with other medical treatment and regimen; Z81.1 Family history of alcohol abuse and dependence; Z81.8 Family history of other mental and behavioral disorders
CPT/HCPCS: 36415; 82040; 82247; 82310; 82374; 82435; 82565; 82947; 84075; 84132; 84155; 84295; 84450; 84460; 84520; 85025

== ENCOUNTER → 2017-12-07 | Outpatient (CLI) | payer OTHER ==
[~2017-12-07] MED LIST changes: +NIC10R INH; +NICOTROL INHALER PO
== END ==
LOC: AMB 16:30
PROVIDERS: ATTEND Nurse Practitioner
DX: R56.9 Unspecified convulsions (principal)
CPT/HCPCS: A0425; A0427

== ENCOUNTER 2018-01-01 22:35 | Inpatient (IN) | payer OTHER ==
[~2018-01-01] VITALS: Ht 162.6 cm; Wt 61.7 kg
[~2018-01-01 22:35] MED LIST changes: -CLON-303 PO; +CLON-304 PO; +NIC10R INH; +NICOTROL INHALER PO
--- NOTE | 2018-01-01 22:38 | ER Report ---
History and Physical Time Seen By MD: 22:37 HPI/ROS CHIEF COMPLAINT: Suicidal ideations, alcohol intoxication HISTORY OF PRESENT ILLNESS: Patient is a 22-year-old female here with complaints of depression, anxiety, verbalization of suicidal ideations via text to family members. Patient is visibly intoxicated, uncooperative and unwilling to answer questions. Reportedly family members became concerned when she was texting them, verbalizing that she was going to harm herself. Family members notified the local please brought the patient in for emergency detainment. Patient has prior history of alcohol abuse, depression. She was recently admitted in December 07 for similar complaints and reportedly had a difficult detox per prior reports. Article 25 was petitioned by police upon arrival for emergency longterm. REVIEW OF SYSTEMS: Unable to obtain due to lack of cooperation Allergies: Coded Allergies: No Known Drug Allergies (Unverified , 12/07/17) Home Meds Reported Medications [Nicotrol Inhaler] No Conflict Check, 1 EA PO PRN Y for NICOTINE REPLACEMENT 12/12/17 Nicotine (NICOTROL) 10 Mg/Inh Ctr, 10 MG INH PRN Y for NICOTINE REPLACEMENT 12/12/17 Multivits,Th W-Fe,Other Min (THERA-M) 1 Each Tablet, 1 EACH PO QAM 12/12/17 Escitalopram Oxalate (LEXAPRO) 20 Mg Tablet, 10 MG PO QHS, TAB 12/08/17 Hydroxyzine Pamoate (VISTARIL) 25 Mg Capsule, 25-50 MG PO TID Y for ANXIETY, CAPSULE 11/15/17 Hx Smoking: Yes Smoking Status: Current: Every Day Smoker, Heavy Tobacco Smoker Exposure to Second Hand Smoke?: No Hx Substance Use Disorder: Yes (patient smokes marijuana OFTEN) Hx Alcohol Use: No Constitutional Vital Sign - Last 24 Hours 01/01/18 01/01/18 01/02/18 01/02/18 22:36 23:50 00:05 00:14 Temp 98.6 Pulse 99 ??? 89 94 Resp 16 B/P (MAP) 147/98 117/81 (93) Pulse Ox 95 90 01/02/18 01/02/18 01/02/18 01/02/18 00:19 00:34 00:49 01:04 Pulse 97 99 103 106 Pulse Ox 90 89 89 89 01/02/18 01/02/18 01/02/18 01/02/18 02:09 02:24 02:39 02:54 Pulse 110 103 103 107 Pulse Ox 89 90 89 89 01/02/18 01/02/18 03:25 03:40 Pulse 100 103 Pulse Ox 90 90 Physical Exam General Appearance: The patient is alert, has no immediate need for airway protection and no signs of toxicity. + Tearful, distressed Eyes: Pupils equal and round no pallor or injection. ENT, Mouth: Mucous membranes are moist. Respiratory: There are no retractions, lungs are clear to auscultation. Cardiovascular: Regular rate and rhythm. Gastrointestinal: Abdomen is soft and non tender, no masses, bowel sounds normal. Neurological: No focal neuro deficits Skin: Warm and dry, no rashes. Psych: + anxious, tearful, suicidal DIFFERENTIAL DIAGNOSIS: After history and physical exam differential diagnosis was considered for depression, anxiety, suicidal thoughts and gestures Medical Decision Making Data Points Result Diagram: 01/01/18 0728 01/01/18 8531 Laboratory Hematology Test 01/01/18 23:53 01/02/18 00:02 Red Blood Count 5.33 M/uL (4.17-5.56) Mean Corpuscular Volume 90.4 fL (80.0-96.0) Mean Corpuscular Hemoglobin 30.8 pg (26.0-33.0) Mean Corpuscular Hemoglobin Concent 34.0 g/dL (32.0-36.0) Red Cell Distribution Width 13.7 % (11.5-14.5) Mean Platelet Volume 8.2 fL (7.2-11.1) Neutrophils (%) (Auto) 55.9 % (39.4-72.5) Lymphocytes (%) (Auto) 35.5 % (17.6-49.6) Monocytes (%) (Auto) 5.7 % (4.1-12.4) Eosinophils (%) (Auto) 2.4 % (0.4-6.7) Basophils (%) (Auto) 0.5 % (0.3-1.4) Nucleated RBC Relative Count (auto) 0.0 /100WBC Neutrophils # (Auto) 3.1 K/uL (2.0-7.4) Lymphocytes # (Auto) 1.9 K/uL (1.3-3.6) Monocytes # (Auto) 0.3 K/uL (0.3-1.0) Eosinophils # (Auto) 0.1 K/uL (0.0-0.5) Basophils # (Auto) 0.0 K/uL (0.0-0.1) Nucleated RBC Absolute Count (auto) 0.00 K/uL Sodium Level 143 mmol/L (137-145) Potassium Level 3.9 mmol/L (3.5-5.0) Chloride Level 104 mmol/L (98-107) Carbon Dioxide Level 18 mmol/L (22-31) Blood Urea Nitrogen 9 mg/dl (7-18) Creatinine 0.70 mg/dl (0.52-1.04) Glomerular Filtration Rate Calc > 60.0 Random Glucose 79 mg/dl (75-110) Calcium Level 8.9 mg/dl (8.4-10.2) Magnesium Level 2.3 mg/dl (1.7-2.2) Total Bilirubin 0.5 mg/dl (0.2-1.3) Aspartate Amino Transf (AST/SGOT) 81 U/L (0-35) Alanine Aminotransferase (ALT/SGPT) 90 U/L (0-56) Alkaline Phosphatase 110 U/L (0-126) Total Protein 7.4 g/dl (6.3-8.2) Albumin 4.7 g/dl (3.5-5.0) Salicylates Level < 10 mg/L Salicylate Last Dose Date unknown Acetaminophen Level < 10 ug/ml Serum Alcohol 371 mg/dl Urine Color Yellow Urine Clarity Clear Urine pH 5.0 pH (4.8-9.5) Urine Specific [place] 1.005 Urine Protein Negative mg/dL (NEGATIVE) Urine Glucose (UA) Negative mg/dL (NEGATIVE) Urine Ketones Trace mg/dL (NEGATIVE) Urine Blood Negative (NEGATIVE) Urine Nitrite Negative (NEGATIVE) Urine Bilirubin Negative (NEGATIVE) Urine Urobilinogen Negative mg/dL (0.2-1.9) Urine Leukocyte Esterase Negative (NEGATIVE) Urine RBC None /HPF (0-2/HPF) Urine WBC <1 /HPF (0-5/HPF) Urine Squamous Epithelial Cells Moderate /LPF (NONE-FEW) Urine Transitional Epithelial Cells Few /LPF (NONE-FEW) Urine Bacteria Negative /HPF (NONE-FEW) Urine Hyaline Casts Few /LPF (NONE-FEW) Urine Mucus None /HPF (NONE-FEW) Urine HCG, Qualitative Negative (NEGATIVE) Urine Opiates Screen Negative Urine Barbiturates Screen Negative Ur Tricyclic Antidepressants Screen Negative Urine Phencyclidine Screen Negative Urine Amphetamines Screen Negative Urine Benzodiazepines Screen Positive Urine Cocaine Screen Negative Urine Cannabinoids Screen Negative Chemistry Test 01/01/18 23:53 01/02/18 00:02 White Blood Count 5.5 k/uL (4.5-11.0) Red Blood Count 5.33 M/uL (4.17-5.56) Hemoglobin 16.4 g/dL (12.0-16.0) Hematocrit 48.2 % (34.0-47.0) Mean Corpuscular Volume 90.4 fL (80.0-96.0) Mean Corpuscular Hemoglobin 30.8 pg (26.0-33.0) Mean Corpuscular Hemoglobin Concent 34.0 g/dL (32.0-36.0) Red Cell Distribution Width 13.7 % (11.5-14.5) Platelet Count 165 K/uL (150-450) Mean Platelet Volume 8.2 fL (7.2-11.1) Neutrophils (%) (Auto) 55.9 % (39.4-72.5) Lymphocytes (%) (Auto) 35.5 % (17.6-49.6) Monocytes (%) (Auto) 5.7 % (4.1-12.4) Eosinophils (%) (Auto) 2.4 % (0.4-6.7) Basophils (%) (Auto) 0.5 % (0.3-1.4) Nucleated RBC Relative Count (auto) 0.0 /100WBC Neutrophils # (Auto) 3.1 K/uL (2.0-7.4) Lymphocytes # (Auto) 1.9 K/uL (1.3-3.6) Monocytes # (Auto) 0.3 K/uL (0.3-1.0) Eosinophils # (Auto) 0.1 K/uL (0.0-0.5) Basophils # (Auto) 0.0 K/uL (0.0-0.1) Nucleated RBC Absolute Count (auto) 0.00 K/uL Glomerular Filtration Rate Calc > 60.0 Calcium Level 8.9 mg/dl (8.4-10.2) Magnesium Level 2.3 mg/dl (1.7-2.2) Total Bilirubin 0.5 mg/dl (0.2-1.3) Aspartate Amino Transf (AST/SGOT) 81 U/L (0-35) Alanine Aminotransferase (ALT/SGPT) 90 U/L (0-56) Alkaline Phosphatase 110 U/L (0-126) Total Protein 7.4 g/dl (6.3-8.2) Albumin 4.7 g/dl (3.5-5.0) Salicylates Level < 10 mg/L Salicylate Last Dose Date unknown Acetaminophen Level < 10 ug/ml Serum Alcohol 371 mg/dl Urine Color Yellow Urine Clarity Clear Urine pH 5.0 pH (4.8-9.5) Urine Specific [place] 1.005 Urine Protein Negative mg/dL (NEGATIVE) Urine Glucose (UA) Negative mg/dL (NEGATIVE) Urine Ketones Trace mg/dL (NEGATIVE) Urine Blood Negative (NEGATIVE) Urine Nitrite Negative (NEGATIVE) Urine Bilirubin Negative (NEGATIVE) Urine Urobilinogen Negative mg/dL (0.2-1.9) Urine Leukocyte Esterase Negative (NEGATIVE) Urine RBC None /HPF (0-2/HPF) Urine WBC <1 /HPF (0-5/HPF) Urine Squamous Epithelial Cells Moderate /LPF (NONE-FEW) Urine Transitional Epithelial Cells Few /LPF (NONE-FEW) Urine Bacteria Negative /HPF (NONE-FEW) Urine Hyaline Casts Few /LPF (NONE-FEW) Urine Mucus None /HPF (NONE-FEW) Urine HCG, Qualitative Negative (NEGATIVE) Urine Opiates Screen Negative Urine Barbiturates Screen Negative Ur Tricyclic Antidepressants Screen Negative Urine Phencyclidine Screen Negative Urine Amphetamines Screen Negative Urine Benzodiazepines Screen Positive Urine Cocaine Screen Negative Urine Cannabinoids Screen Negative Toxicology Test 01/01/18 23:53 01/02/18 00:02 Salicylates Level < 10 mg/L Salicylate Last Dose Date unknown Acetaminophen Level < 10 ug/ml Serum Alcohol 371 mg/dl Urine Opiates Screen Negative Urine Barbiturates Screen Negative Ur Tricyclic Antidepressants Screen Negative Urine Phencyclidine Screen Negative Urine Amphetamines Screen Negative Urine Benzodiazepines Screen Positive Urine Cocaine Screen Negative Urine Cannabinoids Screen Negative Urinalysis Test 01/02/18 00:02 Urine Color Yellow Urine Clarity Clear Urine pH 5.0 pH (4.8-9.5) Urine Specific [place] 1.005 Urine Protein Negative mg/dL (NEGATIVE) Urine Glucose (UA) Negative mg/dL (NEGATIVE) Urine Ketones Trace mg/dL (NEGATIVE) Urine Blood Negative (NEGATIVE) Urine Nitrite Negative (NEGATIVE) Urine Bilirubin Negative (NEGATIVE) Urine Urobilinogen Negative mg/dL (0.2-1.9) Urine Leukocyte Esterase Negative (NEGATIVE) Urine RBC None /HPF (0-2/HPF) Urine WBC <1 /HPF (0-5/HPF) Urine Squamous Epithelial Cells Moderate /LPF (NONE-FEW) Urine Transitional Epithelial Cells Few /LPF (NONE-FEW) Urine Bacteria Negative /HPF (NONE-FEW) Urine Hyaline Casts Few /LPF (NONE-FEW) Urine Mucus None /HPF (NONE-FEW) Urine HCG, Qualitative Negative (NEGATIVE) ED Course/Re-evaluation ED Course Patient is a 22-year-old female here with complaints of suicidal ideation and gestures with a history of anxiety and depression. Patient was recently admitted for similar complaints to the behavioral health floor. Patient reportedly verbalized her intent for self-harm to her family members who contacted the local police for intervention. Patient initially was very uncooperative refusing to answer questions or be examined initially. Due to her verbally aggressive nature and need for evaluation for medical clearance, patient was given Zyprexa 10 mg, Ativan 2 mg and Benadryl 50 mg IM. Labs were remarkable for an alcohol level of 371, positive urine for benzodiazepines after Ativan was given to the patient. Due to the patient's threats for self- harm and concurrent alcohol intoxication, decision to admit the patient for further psychiatric care was made. I discussed the patient with Dr. Orozco who confirmed that there were no available beds on the behavioral health services floor. I discussed the patient with Dr. Abby Caldwell who accepted the patient to the medical ICU floor. Nursing supervisor stave cutting was contacted to arrange for personal coverage. Patient was stable at time of admission. Decision to Disposition Date: Jan 02, 2018 Decision to Disposition Time: 00:49 Depart Departure Latest Vital Signs Vital Signs Date Time Temp Pulse Resp B/P (MAP) Pulse Ox O2 Delivery O2 Flow Rate FiO2 01/02/18 03:40 103 90 01/01/18 23:50 117/81 (93) 01/01/18 22:36 98.6 16 Impression: Primary Impression: Depression Additional Impressions: GENERALIZED ANXIETY DISORDER SUICIDAL IDEATIONS ALCOHOL DEPENDENCE, UNCOMPLICATED Condition: Improved Disposition: Admitted from ER Problem Qualifiers WANDA JUNIOR DO Jan 01, 2018 22:37
[2018-01-01] MEDS ORDERED: diphenhydrAMINE 50 MG/ML VIAL IM ONE (22:45)
[2018-01-01] MEDS ORDERED: LORazepam 2 MG/ML VIAL IM ONE (22:45)
[2018-01-01] MEDS ORDERED: OLANZapine 10 MG VIAL IM ONE (22:45)
[2018-01-01] MEDS ORDERED: WATER STERILE 10 ML VIAL IM ONLY ONE (22:45)
[2018-01-02 00:04] LABS: PLATELET COUNT, AUTOMATED 165 K/uL (150-450)
--- NOTE | 2018-01-02 06:22 | BHS - Psychiatric Evaluation ---
ER - Title 25 MHE Evaluation Title 25 Evaluation Patient Detained By: Law Enforcement Referral Source: Police, Patient family Date Patient Detained: Jan 01, 2018 Time Patient Detained: 22:25 Date [facility]cf Expires: Jan 03, 2018 Time [facility] Expires: 22:25 Legal Status: Police Hold: No Legal Status: Residence: [facility] Resident, State Resident Assessment Data Provided By: Patient, Law Enforcement, Family Member(s) HPI/ROS: Patient is a 22-year-old female here with complaints of suicidal ideation, alcohol intoxication. Patient reportedly was verbalizing suicidal thoughts and plans to family members when they contacted local police enforcement further intervention. Patient is visibly intoxicated at time of evaluation, angry about being detained. Admit due to SI or Attempt: Yes Suicide Plan: No Plan Alcohol or Drugs Involved: Yes Current Intoxication Info: Alcohol Emergency Medical/Psych Tx: Zyprexa 10 mg, Ativan 2 mg, Benadryl 50 mg Is Patient Info Reliable: No Is Collateral Info Reliable: Yes Mental Status Exam General Appearance: Unkept, Tearful Speech: Rambling Mood: No Dysthmic/Depressed, No Euthymic, No Hyperthymic, No Other Affect: Sad, Tearful, Anxious, Agitated Thought Process: No Organized, No Logical, No Goal Directed, No Loose Associations, No Flight of Ideas, No Other Thought Content: Suicidal Ideation Sensorium: Other (intoxicated) Cognition: Alert & Oriented-Person, Alert & Oriented-Place, Alert & Oriented- Time, [id number] Memory: Immediate Insight Judgment: Poor Sleep: No Normal, No Insomnia, No Hypersomnia Hallucinations: Denies Delusions: Denies Current Risk & History Current Dangerous Risk Assessm: Current Suicide Ideation Past Dangerous Risk Assessm: Suicide Ideation-last 6mo Prior Alcohol/Drug Abuse Alcohol use Prior Withdrawal Complications "Difficult alcohol withdrawal"during recent admission Previous Suicide Attempt: No Previous Attempt Previous Psychiatric Illness: Yes Previous Psychiatric Treatment: Yes Risk Assessment & Disposition Evaluated Risk Assessment: Apparent risk for self-harm Impression: Primary Impression: Depression Additional Impressions: ALCOHOL DEPENDENCE, UNCOMPLICATED GENERALIZED ANXIETY DISORDER SUICIDAL IDEATIONS Meets Mental Illness Req.: Yes Meets Dangerousness Req.: Yes Emergency Chcf to be: Upheld Date of Decision: Jan 02, 2018 Time of Decision: 02:00 Patient is Medically Stable at: Yes Disposition: Inpatient Problem Qualifiers WANDA JUNIOR DO Jan 02, 2018 06:22
[2018-01-02 06:43] VITALS: BP 121/81
[2018-01-02] MEDS ORDERED: NS(*) 0.9% 1000 ML BAG 1,000 ML IV PRN (06:49)
[2018-01-02] MEDS ORDERED: INFLUENZA VIRUS VAC 0.5 ML SYR IM ONLY ONE (06:50)
[2018-01-02] MEDS ORDERED: DIAZEPAM 10 MG TAB PO PRN (06:50)
--- NOTE | 2018-01-02 07:40 | History & Physical ---
History of Present Illness Chief Complaint Suicidal ideations/alcohol intoxication History of Present Illness 22yo female with PMHx significant for depression, alcoholism. It is reported she was making suicidal statements/gestures. She was also drinking heavily. The police was contacted and patient was brought to [facility] for evaluation. She was placed on emergency half-way. [facility] was unable to accommodate her at this time. She was recommended for admission. History Problems: (1) Alcohol abuse Status: Chronic (2) Anxiety Status: Acute (3) Depression Status: Chronic (4) Suicidal behavior Status: Acute Home Meds Discontinued Reported Medications [Nicotrol Inhaler] No Conflict Check, 1 EA PO PRN Y for NICOTINE REPLACEMENT 12/12/17 Nicotine (NICOTROL) 10 Mg/Inh Ctr, 10 MG INH PRN Y for NICOTINE REPLACEMENT 12/12/17 Multivits, W-,Other Min (THERA-M) 1 Each Tablet, 1 EACH PO QAM 12/12/17 Escitalopram Oxalate (LEXAPRO) 20 Mg Tablet, 10 MG PO QHS, TAB 12/08/17 Hydroxyzine Pamoate (VISTARIL) 25 Mg Capsule, 25-50 MG PO TID Y for ANXIETY, CAPSULE 11/15/17 Allergies: Coded Allergies: No Known Drug Allergies (Unverified , 12/07/17) Hx Smoking: Yes Smoking Status: Current: Every Day Smoker, Heavy Tobacco Smoker Exposure to Second Hand Smoke?: No Caffeine Intake: Coffee Caffeine/Cups Per Day: 4-7 Hx Alcohol Use: Yes Alcohol Use: Currently Alcohol Used: Liquor Hx Substance Use Disorder: Yes Social Drug Use: Currently Social Drugs: Marijuana Review of Systems Constitutional: No Fever, No Chills Cardiovascular: No Chest Pain Gastrointestinal: No Nausea, No Vomiting, No Abdominal Pain Psychiatric: Depression, Anxiety Exam Vital Signs Vital Signs Date Time Temp Pulse Resp B/P (MAP) Pulse Ox O2 Delivery O2 Flow Rate FiO2 01/02/18 06:43 97.6 101 20 121/81 (94) 93 Room Air General Appearance: Alert, Awake, Other (tremulous/shaky) Neuro: No Gross deficits Eyes: PERRLA ENT: Oropharynx Clear Neck: No Masses Cardiovascular: Other (slightly tachycardic regular) Respiratory: Clear to Auscultation Chest: No Tenderness GI: Abd Soft and Non-Tender (BS present) : No CVA Tenderness Lymph: No Adenopathy Extremities: Warm, Perfused Integumentary: Skin Intact without Lesion / Mass Psych: Alert & Oriented X3 Medical Decision Making Data Points Result Diagram: 01/01/18235201/01/182352 Item Value Date Time Albumin 4.7 g/dl 01/01/182352 Total Protein 7.4 g/dl 01/01/182352 Alkaline Phosphatase 110 U/L 01/01/182352 Alanine Aminotransferase (ALT/SGPT) 90 U/L H 01/01/182352 Aspartate Amino Transf (AST/SGOT) 81 U/L H 01/01/182352 Total Bilirubin 0.5 mg/dl 01/01/182352 Magnesium Level 2.3 mg/dl H 01/01/182352 Calcium Level 8.9 mg/dl 01/01/182352 Serum Alcohol 371 mg/dl *H 01/01/182352 Urine Cannabinoids Screen Negative 01/02/18 0002 Urine Cocaine Screen Negative 01/02/18 0002 Urine Benzodiazepines Screen Positive 01/02/18 0002 Urine Amphetamines Screen Negative 01/02/18 0002 Urine Phencyclidine Screen Negative 01/02/18 0002 Ur Tricyclic Antidepressants Screen Negative 01/02/18 0002 Urine Barbiturates Screen Negative 01/02/18 0002 Urine Opiates Screen Negative 01/02/181 Acetaminophen Level < 10 ug/ml 01/01/182352 Salicylates Level < 10 mg/L 01/01/182352 Urine Color Yellow 01/02/18 0002 Urine Clarity Clear 01/02/181 Urine pH 5.0 pH 01/02/18 0002 Urine Specific [place] 1.005 01/02/18 0002 Urine Protein Negative mg/dL 01/02/18 0002 Urine Glucose (UA) Negative mg/dL 01/02/18 0002 Urine Ketones Trace mg/dL 01/02/18 0002 Urine Blood Negative 01/02/18 0002 Urine Nitrite Negative 01/02/18 0002 Urine Bilirubin Negative 01/02/18 0002 Urine Urobilinogen Negative mg/dL 01/02/18 0002 Urine Leukocyte Esterase Negative 01/02/18 0002 Urine RBC None /HPF 01/02/18 0002 Urine WBC <1 /HPF 01/02/18 0002 Urine Squamous Epithelial Cells Moderate /LPF H 01/02/18 0002 Urine Transitional Epithelial Cells Few /LPF 01/02/18 0002 Urine Bacteria Negative /HPF 01/02/18 0002 Urine Hyaline Casts Few /LPF 01/02/18 0002 Urine Mucus None /HPF 01/02/18 0002 Urine HCG, Qualitative Negative 01/02/18 0002 Assessment and Plan Problems: (1) Suicidal behavior Status: Acute Assessment & Plan: Will admit to the ICU, place on suicide precautions, have psychiatry see as well. (2) Alcohol abuse Status: Chronic Assessment & Plan: Will place on CIWA protocol and treat as needed. She will get B vitamin supplements as well. She is unsure if she wants to detox at this point. (3) Depression Status: Chronic Assessment & Plan: She has been on SSRI, but has not been taking "for a long time". Will allow psychiatry to evaluate/treat. Venous Thromboembolism Antithrombotics Is Pt On Any Antithrombotics?: No (JOSE L hose/ambulation) Exam Sepsis Risk: No Definite Risk DREA LOYOLA MD Jan 02, 2018 07:40
[2018-01-02] MEDS ORDERED: FOLIC ACID 1 MG TAB PO SCH (09:00)
[2018-01-02] MEDS ORDERED: THIAMINE HCL 100 MG TAB PO SCH (09:00)
[2018-01-02 09:25] VITALS: BP 119/91
[2018-01-02 09:27] VITALS: BP 119/91
[2018-01-02] MEDS: DIAZEPAM 10 MG TAB PO PRN ×3 (09:32→13:50)
[2018-01-02 12:19] VITALS: BP 133/108
--- NOTE | 2018-01-02 13:37 | Hospitalist Depart ---
Discharge Summary Reason for Hosp/Final Diag: (1) Suicidal behavior Status: Acute Hospital Course & Plan: She was admitted to the ICU, and placed on suicide precautions. Dr. Orozco has seen her and is going to have moved to [facility]. (2) Alcohol abuse Status: Chronic Hospital Course & Plan: She was placed on CIWA with Valium to treat. She has received two doses of Valium 20mg (0932 and 1234). She was not given the subsequent hourly two doses after each initial dose because she was somnolent. She will get B vitamin supplements as well. (3) Depression Status: Chronic Hospital Course & Plan: She has been on SSRI, but has not been taking "for a long time". Departure Weight (Pounds): 136 Result Diagram: 01/01/18235201/01/182352 Item Value Date Time Thyroid Stimulating Hormone (TSH) 0.09 uIU/ml L 01/01/182352 Albumin 4.7 g/dl 01/01/182352 Total Protein 7.4 g/dl 01/01/182352 Alkaline Phosphatase 110 U/L 01/01/182352 Alanine Aminotransferase (ALT/SGPT) 90 U/L H 01/01/182352 Aspartate Amino Transf (AST/SGOT) 81 U/L H 01/01/182352 Total Bilirubin 0.5 mg/dl 01/01/182352 Magnesium Level 2.3 mg/dl H 01/01/182352 Urine HCG, Qualitative Negative 01/02/18 0002 Urine Squamous Epithelial Cells Moderate /LPF H 01/02/18 0002 Urine Transitional Epithelial Cells Few /LPF 01/02/18 0002 Urine Bacteria Negative /HPF 01/02/18 0002 Urine Hyaline Casts Few /LPF 01/02/18 0002 Urine Mucus None /HPF 01/02/18 0002 Urine Benzodiazepines Screen Positive 01/02/181 Acetaminophen Level < 10 ug/ml 01/01/182352 Salicylates Level < 10 mg/L 01/01/182352 Condition: Improved Discharge: [facility] Discharge Instructions Home Meds Discontinued Reported Medications [Nicotrol Inhaler] No Conflict Check, 1 EA PO PRN Y for NICOTINE REPLACEMENT 12/12/17 Nicotine (NICOTROL) 10 Mg/Inh Ctr, 10 MG INH PRN Y for NICOTINE REPLACEMENT 12/12/17 Multivits,Th W-Fe,Other Min (THERA-M) 1 Each Tablet, 1 EACH PO QAM 12/12/17 Escitalopram Oxalate (LEXAPRO) 20 Mg Tablet, 10 MG PO QHS, TAB 12/08/17 Hydroxyzine Pamoate (VISTARIL) 25 Mg Capsule, 25-50 MG PO TID Y for ANXIETY, CAPSULE 11/15/17 Diet: Regular Activity: As Tolerated Special Instructions: Venous Thromboembolism Antithrombotics Is Pt On Any Antithrombotics?: No (JOSE L edgard/ambulation) JAKY GALLEGOS MD Jan 02, 2018 13:37
== END 2018-01-02 14:26 | DRG 897 ==
LOC: ER 23:14 → ICU 01-02 06:28
PROVIDERS: ADMIT Internal Medicine; ATTEND Internal Medicine
DX: F10.120 Alcohol abuse with intoxication, uncomplicated (principal); R45.851 Suicidal ideations; F41.8 Other specified anxiety disorders; Y90.8 Blood alcohol level of 240 mg/100 ml or more
CPT/HCPCS: 36415; 80305; 80320; 80329; 81001; 81025; 82040; 82247; 82310; 82374; 82435; 82565; 82947; 83735; 84075; 84132; 84155; 84295; 84443; 84450; 84460; 84520; 85025; 96372; 99284; A4216; A4353; J1200; J2060; J3490; J7030

== ENCOUNTER 2018-01-02 14:26 | Inpatient (IN) | payer OTHER ==
[~2018-01-02] VITALS: Ht 162.6 cm; Wt 61.7 kg
[2018-01-02] MEDS: DIAZEPAM 10 MG TAB PO PRN ×2 (15:57→21:50)
[2018-01-02 16:00] VITALS: BP 90/60
[2018-01-02] MEDS ORDERED: hydrOXYzine PAMOATE 25 MG CAP PO PRN (16:35)
[2018-01-02] MEDS ORDERED: MAG HYD/AL HYD/SIMETH 30ML UDC PO PRN (16:35)
[2018-01-02 17:26] VITALS: BP 139/93
[2018-01-02] MEDS: NICOTINE POLACRILEX 2 MG GUM PO PRN ×2 (18:13→22:05)
[2018-01-02 21:27] VITALS: BP 132/84
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
[2018-01-03 00:10] VITALS: BP 140/92
[2018-01-03] MEDS: DIAZEPAM 10 MG TAB PO PRN ×3 (00:15→02:01)
[2018-01-03 08:15] VITALS: BP 121/63
[2018-01-03] MEDS: FOLIC ACID 1 MG TAB PO SCH (08:17)
[2018-01-03] MEDS: ESCITALOPRAM OXALATE 10 MG TAB PO SCH (08:17)
[2018-01-03] MEDS: THIAMINE HCL 100 MG TAB PO SCH (08:18)
[2018-01-03] MEDS: MULTIVITAMINS PO SCH (08:18)
[2018-01-03] MEDS ORDERED: NICOTINE 21 MG/24 HR PATCH TD SCH (09:00)
[2018-01-03] MEDS: NICOTINE POLACRILEX 2 MG GUM PO PRN ×5 (09:09→21:43)
[2018-01-03 12:15] VITALS: BP 134/99
[2018-01-03 16:15] VITALS: BP 121/79
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
[2018-01-03 20:25] VITALS: BP 134/99
[2018-01-03 20:43] VITALS: BP 134/99
[2018-01-03] MEDS ORDERED: MELATONIN 3 MG TAB PO SCH (21:00)
[2018-01-04 05:55] VITALS: BP 120/86
[2018-01-04] MEDS: MULTIVITAMINS PO SCH (08:18)
[2018-01-04] MEDS: FOLIC ACID 1 MG TAB PO SCH (08:18)
[2018-01-04] MEDS: ESCITALOPRAM OXALATE 10 MG TAB PO SCH (08:18)
[2018-01-04] MEDS: THIAMINE HCL 100 MG TAB PO SCH (08:18)
[2018-01-04 08:20] VITALS: BP 112/84
[2018-01-04] MEDS: NICOTINE POLACRILEX 2 MG GUM PO PRN ×4 (08:44→12:58)
[2018-01-04] MEDS ORDERED: HYDR25CA83 PO (10:05)
[2018-01-04] MEDS ORDERED: ESCI10TA8 PO (10:07)
[2018-01-04] MEDS ORDERED: MULT-1379 PO (10:09)
[2018-01-04] MEDS ORDERED: MELA3TAB31 PO (10:09)
[2018-01-04] MEDS ORDERED: NICO-219 BC (10:10)
--- NOTE | 2018-01-05 16:44 | DISCHARGE SUMMARY ---
DATE OF ADMISSION: January 02, 2018 DATE OF DISCHARGE: January 04, 2018 Patient was seen approximately 0900 hours on 04 January 2018 for note concerning this dictation. FINAL DIAGNOSES 1. Alcohol-induced mood disorder. 2. Alcohol use disorder, severe. 3. Cannabis use disorder, mild and in partial remission. 4. Cluster B traits. 5. Supportive relationship with parents overall. REASON FOR ADMISSION This is beginning to be a fairly well known 22-year-old female who suffers from alcohol use disorder, severe, patient indicating to family and friends that she was having suicidal thoughts, this while intoxicated. This resulted in emergency detainment. Patient was once again very uncooperative in the Emergency Room in a state of alcohol intoxication. Again, she was placed for overnight observation on the medical floor prior to coming to [facility]. Interestingly, patient became very cooperative on Behavioral Health Floor and much more so than on previous admissions here. Patient seemingly gaining maturity and an understanding that she should refrain from all alcohol use. Patient also indicating that she has done well abstaining from alcohol since last admission overall with a brief relapse resulting in this admission. Patient's alcohol withdrawal was noted to be less significant than on previous admissions, but still clinically relevant. Patient's mood continued to improve. Patient indicating no parasuicidal behaviors on the floor and interacting well with this provider. Please see H and P for further details. PHYSICAL EXAMINATION Please see emergency room note. Notable for: GENERAL: Combative 22-year-old female requiring chemical restraint, therefore being monitored overnight after critically high blood alcohol levels in combination with chemical restraint administration. VITAL SIGNS: Vital signs at time of admission, temperature 98.6, pulse 99, respiratory rate 16, blood pressure 147/98, and pulse oximetry 95% on room air. At time of discharge from Behavioral Health Unit, temperature 98.6, pulse 86, respiratory rate 18, blood pressure 112/84, and pulse oximetry 95% on room air. LABORATORY DATA Repeat TSH on January 04, 2018, noted to be in normal range, 1.73, free T4 low normal range, 0.79, and a free T3 of 2.8. Toxicology screen upon admission positive for benzodiazepines. It was likely drawn after patient was given these in the Emergency Room. Serum alcohol level critically high at 371. UA was unremarkable. screen negative. Chemistry panel notable for AST and ALT elevated at 81 and 90 respectively. CBC unremarkable. MENTAL STATUS EXAMINATION GENERAL APPEARANCE, BEHAVIOR, AND ATTITUDE: At time of discharge, this is a cooperative, well-groomed, 22-year-old female making good eye contact. No bizarre mannerisms or tics. Interacting cooperatively with this provider and other treatment team staff. Also interacting well with her father on the phone prior to discharge. No psychomotor agitation or retardation. Alcohol withdrawal is considered complete. SPEECH: Within normal limits. Regular rate, rhythm, volume, and tone. MOOD: Described as good. AFFECT: Full and mood congruent. THOUGHT PROCESSES: Logical, goal directed. No loose associations or flight of ideas. THOUGHT CONTENT: Free of auditory or visual hallucinations, ideas of reference , thought broadcasting, delusions, obsessions, compulsions. Patient adamantly denying suicidal or homicidal ideations. SENSORIUM: Clear. COGNITION: Alert and oriented to person, place, time, and situation. MEMORY: Immediate, recent, and remote estimated intact. INTELLIGENCE: Average based on interview. INSIGHT AND JUDGMENT: Some maladaptive personality traits of cluster B in nature exist in this patient; however, patient showing much improvement in interpersonal skills since last admission. Patient will continue to be at risk of extremely poor insight and judgment if under the influence of alcohol or illicit substances. RESULTS OF TESTING IMAGING: None. LABORATORY DATA: See above. CONSULTATIONS None. TREATMENT Patient received medications, participated in individual and group therapy. HOSPITAL COURSE Patient's alcohol withdrawal was considered moderate in nature and notably less than on previous admissions for the same. This was treated to completion with CIWA protocol and diazepam. Patient continued her outpatient medication of Lexapro with good result. Alcohol withdrawal considered complete. Mood improved and was stable at time of discharge. CONDITION OF PATIENT ON DISCHARGE Stable, considered minimal risk to herself or others in the absence of alcohol or illicit substance use. DISPOSITION Patient discharged to home. She would follow up again with [facility]. The patient now on an outpatient commitment to abstain from alcohol and all illicit substances and follow up appropriately. Patient was given the crisis line should symptoms return. Should remain on Lexapro 10 mg p.o. q.a.m. and Vistaril 25 mg one to two p.o. q.6 hours p.r.n. for anxiety and insomnia. Patient agreed to abstain from alcohol and illicit substances. Patient would remain on multivitamin over the counter daily and melatonin as needed p.r.n. at bedtime as well. Risks, benefits, and alternatives of above discharge plan were discussed. Informed consent was given to proceed with above discharge plan by this competent patient, the patient's father, as well as Community Relations Advisor staff present at time of discharge. YASIR
== END 2018-01-04 13:54 | disposition home or self-care (01) | DRG 897 ==
LOC: BHS 14:26
PROVIDERS: ADMIT Psychiatry & Neurology Psychiatry; ATTEND Psychiatry & Neurology Psychiatry
DX: F10.24 Alcohol dependence with alcohol-induced mood disorder (principal); R45.851 Suicidal ideations; F10.239 Alcohol dependence with withdrawal, unspecified; F12.11 Cannabis abuse, in remission; F41.9 Anxiety disorder, unspecified; Y90.8 Blood alcohol level of 240 mg/100 ml or more; Z81.8 Family history of other mental and behavioral disorders
CPT/HCPCS: 36415; 84439; 84443; 84481

== ENCOUNTER 2018-01-12 00:13 | Emergency (ER) | payer OTHER ==
[~2018-01-12 00:13] MED LIST changes: +ESCI10TA8 PO; +MELA3TAB31 PO
[2018-01-12 00:15] VITALS: BP 132/114
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
== END 2018-01-12 01:37 ==
LOC: ER 00:55
DX: Z02.9 Encounter for administrative examinations, unspecified (principal)

== ENCOUNTER 2018-02-06 20:27 | Emergency (ER) | payer OTHER ==
[2018-02-06] MEDS ORDERED: hydrOXYzine 25 MG TAB PO ONE (20:35)
[2018-02-06] MEDS ORDERED: GABAPENTIN 300 MG CAP PO ONE (20:35)
[2018-02-06] MEDS ORDERED: clonazePAM 0.5 MG TAB PO ONE (20:35)
--- NOTE | 2018-02-06 20:35 | ER Report ---
History and Physical Time Seen By MD: 20:31 Hx. of Stated Complaint: PATIENT IS REFUSING TREATMENT; WILL ONLY WANTS TO SPEAK WITH HER EMERGANCY CONTACT HPI/ROS CHIEF COMPLAINT: skilled nursing clearance HISTORY OF PRESENT ILLNESS: This is a 22 year old female. She is brought to the ER by the [place] [employer] for alcohol intoxication and skilled nursing clearance. She is initially refusing care. She will answer some questions. She says she has a seizure disorder for which she take Gabapentin, Clonazepam, and Hydroxyzine. These are three times a day, but she has not had these medications since yesterday. She had a seizure 2 days ago and had a small laceration over her left eye and bruising around the eye. She keeps requesting to talk to her sister or her "emergency contact". She eventually lets us do vitals and a brief exam. Allergies: Coded Allergies: No Known Drug Allergies (Unverified , 02/06/18) Home Meds Reported Medications Nicotine Polacrilex (NICORETTE) 2 Mg Gum, 2 MG BC Q1-2H PRN for NICOTINE REPLACEMENT, GUM 01/04/18 Multivits,Th W-Fe,Other Min (THERA-M) 1 Each Tablet, 1 EACH PO QDAY 01/04/18 Melatonin (MELATONIN) 3 Mg Tablet, 6 MG PO QHS 01/04/18 Escitalopram Oxalate (ESCITALOPRAM OXALATE) 10 Mg Tablet, 10 MG PO QDAY, TAB LEXAPRO 01/04/18 Hydroxyzine Pamoate (VISTARIL) 25 Mg Capsule, 25-50 MG PO Q6H PRN for ANXIETY/INSOMNIA, CAPSULE TAKE EVERY 6 HOURS NEEDED FOR ANXIETY OR INSOMNIA. 01/04/18 Reviewed Nurses Notes: Yes Hx Smoking: Yes Smoking Status: Current: Every Day Smoker, Heavy Tobacco Smoker Exposure to Second Hand Smoke?: Yes Hx Substance Use Disorder: Yes (patient smokes marijuana OFTEN) Hx Alcohol Use: Yes Constitutional Vital Sign - Last 24 Hours 02/06/18 20:52 Pulse 78 Resp 17 B/P (MAP) 124/84 (97) Pulse Ox 98 O2 Delivery Room Air Physical Exam General Appearance: The patient is alert, has no immediate need for airway protection, she is mildly intoxicated. Eyes: Pupils equal and round no injection. Has bruising around the left eye. ENT: Normal oral mucosa. Moist mucous membranes. Tympanic membranes are normal. Neck: Neck is supple and non tender. Respiratory: Chest is non tender, lungs are clear to auscultation. Cardiac: regular rate and rhythm Gastrointestinal: Abdomen is soft and non tender. Musculoskeletal: Extremities have full range of motion. Skin: No rashes or lesions other than the laceration above the left eye and the bruising as noted. DIFFERENTIAL DIAGNOSIS: After history and physical exam differential diagnosis was considered for a patient with alcohol intoxication. Medical Decision Making ED Course/Re-evaluation ED Course The only concern I would have is that she has not had her regular medicines for seizure today. Recommended that we give her her doses of Clonazepam, Hydroxyzine, and her Gabapentin at this time. She will need to resume these regular medications tomorrow. After my brief evaluation, she had some crying and severe anxiety. She did have an episode where she appeared to be faking a seizure. She curled up into a ball and would not talk to us. She had normal vital signs. She had no incontinence, did not bite her tongue, and had no post ictal state. No generalized seizure activity and did seem to be aware of her surroundings. She appears to be having more of an anxiety response at this time. Cleared to be discharged to skilled nursing at this time. Decision to Disposition Date: Feb 06, 2018 Decision to Disposition Time: 20:36 Depart Departure Latest Vital Signs Vital Signs Date Time Temp Pulse Resp B/P (MAP) Pulse Ox O2 Delivery O2 Flow Rate FiO2 02/06/18 20:52 78 17 124/84 (97) 98 Room Air Impression: Primary Impression: Alcohol intoxication Additional Impression: Seizure disorder Condition: Improved Disposition: [facility] TO [facility]CC/CORRECTIONAL F Patient Instructions: Alcohol Intoxication (ED) Additional Instructions: Because you have not had your seizure medicines in the last 24 hours, we are going to give you your oral dose for tonight. We have given you Gabapentin 300mg tablets, but have given 600mg tonight. Restart your regular dose 300mg three times a day tomorrow. We have given you your Hydroxyzine 50mg at this time as well. Please restart your regular hydroxyzine tomorrow. We have given you your Clonazepam 0.5mg at this time as well. Please restart your regular Clonazepam tomorrow. No other changes at this time. Problem Qualifiers Primary Impression: Alcohol intoxication Complication of substance-induced condition: uncomplicated Qualified Codes: F10.920 - Alcohol use, unspecified with intoxication, uncomplicated JULIA OHARA MD Feb 06, 2018 20:35
[2018-02-06 20:52] VITALS: BP 124/84
== END 2018-02-06 21:06 ==
LOC: ER 20:43
DX: F10.920 Alcohol use, unspecified with intoxication, uncomplicated (principal); G40.909 Epilepsy, unspecified, not intractable, without status epilepticus
CPT/HCPCS: 99283

== ENCOUNTER 2018-06-28 17:51 | Emergency (ER) | payer OTHER ==
[~2018-06-28 17:51] MED LIST changes: -CLON-304 PO; +CLON-333 PO
[2018-06-28] MEDS ORDERED: TOPI25CA13 PO (18:04)
[2018-06-28] MEDS ORDERED: CLON-335 PO (18:05)
--- NOTE | 2018-06-28 18:13 | ER Report ---
History and Physical Time Seen By MD: 18:06 Hx. of Stated Complaint: had a seizure this afternoon at 3. does not know how long it lasted, unwitnessed. HPI/ROS CHIEF COMPLAINT: Seizure HISTORY OF PRESENT ILLNESS: This is a 22-year-old female presents to the emergency department for a seizure. Patient states that around 3:00 today she had an unwitnessed seizure. Denies trauma, she states that she did have a meeting this afternoon, was told by a personnel that she should come in for an evaluation. The patient reluctantly did come in. Patient denies fevers. She states she did have chills today. No nausea vomiting. No chest pain or shortness breath. No unusual findings post seizure. She states it's been over 130 days since her last drink of alcohol. REVIEW OF SYSTEMS: Constitutional: No fever, no chills. Eyes: No discharge. ENT: No sore throat. Cardiovascular: No chest pain, no palpitations. Respiratory: No cough, no shortness of breath. Gastrointestinal: No abdominal pain, no vomiting. Genitourinary: No hematuria. Musculoskeletal: No back pain. Skin: No rashes. Neurological: As above. Allergies: Coded Allergies: No Known Drug Allergies (Unverified , 02/06/18) Home Meds Reported Medications Clonazepam (CLONAZEPAM) 2 Mg Tablet, 2 MG PO BID, #6 TAB 06/28/18 Topiramate (TOPAMAX) 25 Mg Cap.sprink, 25 MG PO BID 06/28/18 Nicotine Polacrilex (NICORETTE) 2 Mg Gum, 2 MG BC Q1-2H PRN for NICOTINE REPLACEMENT, GUM 01/04/18 Multivits, W-Fe,Other Min (THERA-M) 1 Each Tablet, 1 EACH PO QDAY 01/04/18 Melatonin (MELATONIN) 3 Mg Tablet, 6 MG PO QHS 01/04/18 Escitalopram Oxalate (ESCITALOPRAM OXALATE) 10 Mg Tablet, 10 MG PO QDAY, TAB LEXAPRO 01/04/18 Hydroxyzine Pamoate (VISTARIL) 25 Mg Capsule, 25-50 MG PO Q6H PRN for ANXIETY/INSOMNIA, CAPSULE TAKE EVERY 6 HOURS NEEDED FOR ANXIETY OR INSOMNIA. 01/04/18 Hx Smoking: Yes Smoking Status: Current: Every Day Smoker, Heavy Tobacco Smoker Exposure to Second Hand Smoke?: Yes Hx Substance Use Disorder: Yes Hx Alcohol Use: Yes Constitutional Vital Sign - Last 24 Hours 06/28/18 06/28/18 06/28/18 17:55 18:45 19:15 Temp 98.0 Pulse 100 Resp 16 18 B/P (MAP) 124/80 124/63 (83) 121/72 (88) Pulse Ox 97 O2 Delivery Room Air Physical Exam General Appearance: The patient is alert, has no immediate need for airway protection and no signs of toxicity. Eyes: Pupils equal and round no pallor or injection. ENT, Mouth: Mucous membranes are moist. Respiratory: There are no retractions, lungs are clear to auscultation. Cardiovascular: Regular rate and rhythm. Gastrointestinal: Abdomen is soft and non tender, no masses, bowel sounds normal. Neurological: Alert and oriented 4. Moving all extremities. Following all commands. No focal neuro deficits. Skin: Warm and dry, no rashes. Musculoskeletal: Neck is supple non tender. Extremities are nontender, nonswollen and have full range of motion. DIFFERENTIAL DIAGNOSIS: After history and physical exam differential diagnosis was considered for a seizure including but not limited to electrolyte abnormality, alcohol withdrawal, medication noncompliance, head injury, and breakthrough seizure. Medical Decision Making Data Points Result Diagram: 06/28/18 [id number] Laboratory Hematology Test 06/28/18 17:59 06/28/18 18:27 Red Blood Count 5.40 M/uL (4.17-5.56) Mean Corpuscular Volume 86.3 fL (80.0-96.0) Mean Corpuscular Hemoglobin 29.3 pg (26.0-33.0) Mean Corpuscular Hemoglobin Concent 34.0 g/dL (32.0-36.0) Red Cell Distribution Width 13.7 % (11.5-14.5) Mean Platelet Volume 8.3 fL (7.2-11.1) Neutrophils (%) (Auto) 58.6 % (39.4-72.5) Lymphocytes (%) (Auto) 27.0 % (17.6-49.6) Monocytes (%) (Auto) 7.2 % (4.1-12.4) Eosinophils (%) (Auto) 5.3 % (0.4-6.7) Basophils (%) (Auto) 1.9 % (0.3-1.4) Nucleated RBC Relative Count (auto) 0.0 /100WBC Neutrophils # (Auto) 5.3 K/uL (2.0-7.4) Lymphocytes # (Auto) 2.4 K/uL (1.3-3.6) Monocytes # (Auto) 0.7 K/uL (0.3-1.0) Eosinophils # (Auto) 0.5 K/uL (0.0-0.5) Basophils # (Auto) 0.2 K/uL (0.0-0.1) Nucleated RBC Absolute Count (auto) 0.00 K/uL Sodium Level 139 mmol/L (137-145) Potassium Level 3.8 mmol/L (3.5-5.0) Chloride Level 105 mmol/L (98-107) Carbon Dioxide Level 25 mmol/L (22-31) Blood Urea Nitrogen 11 mg/dl (7-18) Creatinine 0.60 mg/dl (0.52-1.04) Glomerular Filtration Rate Calc > 60.0 Random Glucose 71 mg/dl (75-110) Calcium Level 9.8 mg/dl (8.4-10.2) Total Bilirubin 0.2 mg/dl (0.2-1.3) Aspartate Amino Transf (AST/SGOT) 25 U/L (0-35) Alanine Aminotransferase (ALT/SGPT) 27 U/L (0-56) Alkaline Phosphatase 62 U/L (0-126) Total Protein 7.8 g/dl (6.3-8.2) Albumin 4.5 g/dl (3.5-5.0) Influenza Virus Type A (PCR) Negative (NEGATIVE) Influenza Virus Type B (PCR) Negative (NEGATIVE) Chemistry Test 06/28/18 17:59 06/28/18 18:27 White Blood Count 9.0 k/uL (4.5-11.0) Red Blood Count 5.40 M/uL (4.17-5.56) Hemoglobin 15.8 g/dL (12.0-16.0) Hematocrit 46.6 % (34.0-47.0) Mean Corpuscular Volume 86.3 fL (80.0-96.0) Mean Corpuscular Hemoglobin 29.3 pg (26.0-33.0) Mean Corpuscular Hemoglobin Concent 34.0 g/dL (32.0-36.0) Red Cell Distribution Width 13.7 % (11.5-14.5) Platelet Count 241 K/uL (150-450) Mean Platelet Volume 8.3 fL (7.2-11.1) Neutrophils (%) (Auto) 58.6 % (39.4-72.5) Lymphocytes (%) (Auto) 27.0 % (17.6-49.6) Monocytes (%) (Auto) 7.2 % (4.1-12.4) Eosinophils (%) (Auto) 5.3 % (0.4-6.7) Basophils (%) (Auto) 1.9 % (0.3-1.4) Nucleated RBC Relative Count (auto) 0.0 /100WBC Neutrophils # (Auto) 5.3 K/uL (2.0-7.4) Lymphocytes # (Auto) 2.4 K/uL (1.3-3.6) Monocytes # (Auto) 0.7 K/uL (0.3-1.0) Eosinophils # (Auto) 0.5 K/uL (0.0-0.5) Basophils # (Auto) 0.2 K/uL (0.0-0.1) Nucleated RBC Absolute Count (auto) 0.00 K/uL Glomerular Filtration Rate Calc > 60.0 Calcium Level 9.8 mg/dl (8.4-10.2) Total Bilirubin 0.2 mg/dl (0.2-1.3) Aspartate Amino Transf (AST/SGOT) 25 U/L (0-35) Alanine Aminotransferase (ALT/SGPT) 27 U/L (0-56) Alkaline Phosphatase 62 U/L (0-126) Total Protein 7.8 g/dl (6.3-8.2) Albumin 4.5 g/dl (3.5-5.0) Influenza Virus Type A (PCR) Negative (NEGATIVE) Influenza Virus Type B (PCR) Negative (NEGATIVE) ED Course/Re-evaluation ED Course Patient was admitted to room. A history of square obtained. Differential diagnoses were considered. The patient was reluctant to have anything done today however she was agreeable to basic screening, CBC, BMP and influenza were negative. I reviewed the results with the patient. She states she elected to go home. Patient had no other questions or concerns at this time and was discharged home. She does have a follow-up appointment tomorrow with her primary care provider. Decision to Disposition Date: Jun 28, 2018 Decision to Disposition Time: 19:25 Depart Departure Latest Vital Signs Vital Signs Date Time Temp Pulse Resp B/P (MAP) Pulse Ox O2 Delivery O2 Flow Rate FiO2 06/28/18 19:15 18 121/72 (88) 06/28/18 17:55 98.0 100 97 Room Air Impression: Primary Impression: Seizure disorder Condition: Improved Disposition: HOME OR SELF-CARE Patient Instructions: Recurrent Seizures in Adults (ED) Additional Instructions: Be sure to follow up with your Primary care provider within the next week for reevaluation.. Drink plenty of water. Get plenty of rest. Return to the ED for any other concerns or worsening symptoms. ISAC [place] ACLS SPECIALIST-BC Jun 28, 2018 18:13
[2018-06-28 18:34] LABS: PLATELET COUNT, AUTOMATED 241 K/uL (150-450)
[2018-06-28 19:15] VITALS: BP 121/72
== END 2018-06-28 19:38 | disposition home or self-care (01) ==
LOC: ER 18:07
DX: G40.909 Epilepsy, unspecified, not intractable, without status epilepticus (principal)
CPT/HCPCS: 82040; 82247; 82310; 82374; 82435; 82565; 82947; 84075; 84132; 84155; 84295; 84450; 84460; 84520; 85025; 87502; 99282